=== PATIENT | male | born 1975 | race Two or more races ===

== ENCOUNTER 2016-10-22 15:05 | Inpatient (IN) | payer BC ==
[2016-10-22] MEDS ORDERED: Acetaminophen TAB* 325 MG PO PRN (15:47)
[2016-10-22] MEDS ORDERED: Ondansetron INJ* 2 MG/ML VIAL IV PRN (15:47)
[2016-10-22] MEDS ORDERED: Piperac/Tazob 3.375 gm in NS* 3.375 GM/100 ML BAG IVPB SCH (16:00)
[2016-10-22] MEDS ORDERED: LORazepam TAB(*) 1 MG PO SCH (16:00)
[2016-10-22] MEDS ORDERED: NS 0.9% 1000 ML* 1,000 ML IV SCH (16:00)
[2016-10-22 16:13] LABS: Hematocrit 40 % (42-52); Mean Corpuscular HGB Conc 35 g/dl (31-36); Mean Corpuscular Hemoglobin 34 pg (27-31); Mean Corpuscular Volume 98 fL (80-94); Mean Platelet Volume 9 um3 (7.4-10.4); Red Blood Count 4.14 10^6/ul (4.0-5.4); Red Cell Distribution Width 13 % (10.5-15); White Blood Count 13.5 10^3/ul (3.5-10.8)
[2016-10-22 16:17] LABS: Add Diff/Slide Review? Slide Review Added; Comments Flag Yes
[2016-10-22] MEDS: NS 0.9% 1000 ML* 2,000 ML IV ONE ×2 (16:20→18:53)
[2016-10-22 16:27] LABS: Albumin 3.8 g/dL (3.2-5.2); BUN/Creatinine Ratio 7.9 (8-20); C Reactive Protein 216.83 mg/L (< 5.00); Calcium 9.3 mg/dL (8.6-10.3); EGFR Non-African American 70.8 (>60); Globulin 3.6 g/dL (2-4); Potassium 3.5 mmol/L (3.5-5.0); Total Protein 7.4 g/dL (6.4-8.9)
[2016-10-22] MEDS ORDERED: Piperac/Tazob 3.375 gm in NS* 3.375 GM/100 ML BAG IVPB ONE (16:30)
[2016-10-22 16:45] LABS: Eosinophils % 1 % (0-6); Immature Granulocytes 18 % (0-9); Neutrophil % 69 % (38-83); RBC Morphology Normal (Normal); Reactive Lymph % 2 % (0-6)
[2016-10-22 18:02] LABS: Urine Bacteria Absent (Absent); Urine Bilirubin Negative (Negative); Urine Glucose Negative (Negative); Urine Nitrite Negative (Negative)
--- NOTE | 2016-10-22 18:30 | HP ---
ATTENDING PHYSICIAN ADDENDUM INCLUDED ON THIS REPORT HISTORY AND PHYSICAL: DATE OF ADMISSION: 10/22/16 PRIMARY CARE PROVIDER: None. ATTENDING PHYSICIAN WHILE IN THE HOSPITAL: Rosalba Carlson MD * (report dictated by Enrike Alvarez NP). CONSULTING GASTROENTEROLOGISTS: Dr. Lee and Dr. Ornelas. CONSULTING SURGEON: Dr. Iverson. CHIEF COMPLAINT: 1. Urinary frequency. 2. Dysuria. HISTORY OF PRESENT ILLNESS: Mr. Hein is a 41-year-old male patient who started noticing last Thursday on the that he had been having some urinary hesitancy and frequency and urinating small frequent amounts. This occurred throughout the last weekend. It got worse on Thursday and Thursday, was not getting any better. He tried drinking fluids with no avail. He went and saw Dr. Thao on the . The patient was diagnosed with prostatitis and UTI. He underwent cystoscopy apparently at Dr. Thao's office as well according to the patient. It was noted that his bladder was very inflamed, so a CT scan was ordered in the outpatient setting. The CT scan today showed what appeared to be diverticulitis in addition to this with a possible fistula and small tiny abscess collections. He was referred to the hospital for IV antibiotics. The patient states that he did have a fever at this doctor's appointment. In addition to this, he says he has not been feeling chills. He says he has noted that he has had some lower abdominal discomfort, particularly on the right side surprisingly and he also says he had some diarrhea and loose stools throughout the weekend, but he attributed this to the fact that he was not eating very well. In addition to this, it was also noted that one episode of vomiting on Thursday when he was drinking a lot of cranberry juice as he was hopeful that this would help with his urinary symptoms. He denied any chest pain or shortness of breath. He has had a cough, but there has been no shortness of breath or any chest pain. He says he is pretty active. He says he otherwise to his knowledge is healthy. He was referred here by Dr. Thao and we were asked to evaluate the patient for admission. PAST MEDICAL HISTORY: Denied. PAST SURGICAL HISTORY: Denied. MEDICATIONS: His only medication includes Bactrim 1 tablet p.o. b.i.d. which is recently prescribed for his presumed prostatitis and UTI. ALLERGIES TO MEDICATIONS: Include no known drug allergies. FAMILY HISTORY: Mother had a history of hypertension. Father had a history of colon cancer. SOCIAL HISTORY: He does not smoke, but he does drink about 2 bottles of wine a day. He has cut back over the last 3-1/2 weeks. He has not been drinking wine now over the last several days. He denies any drug use. His surrogate decision maker is his . REVIEW OF SYSTEMS: There is a documented fever. He denied having any significant weight change. No double vision. No ear discharge. There is no rhinorrhea. No sore throat. No thyroid enlargement. Denied having any chest pain. No orthopnea. There is no nocturnal dyspnea. There is low abdominal pain. There was one episode with nausea and vomiting. There was dysuria and frequency. No seizure. No loss of consciousness. No pruritus and no skin ulcerations. Review of 14 systems completed, all others negative. PHYSICAL EXAMINATION GENERAL: At this time, Mr. Hein is a 41-year-old male patient. He does not appear to be in any acute distress. He is sitting in the surgical bed. He is awake and alert. Appears well nourished, well developed. VITAL SIGNS: Blood pressure 168/90 with a pulse of 113, respirations 16, O2 sat 99%, and temperature 99.7. HEENT: Head: Atraumatic and normocephalic. Eyes: EOMs intact. Sclerae anicteric and not pale. Throat: Oral mucosa appears to be dry. No oropharyngeal erythema. NECK: Supple. LUNGS: Clear to auscultation bilaterally. No wheezes, rales, or rhonchi. HEART: Sounds S1, S2. He is tachycardic. ABDOMEN: It was soft. Bowel sounds were present. He had some tenderness in the left, right lower quadrants and the suprapubic area as well. No rebound tenderness and he was not distended at this point. EXTREMITIES: Pulses were 2+ throughout. Able to move all 4 extremities with 5/ 5 strength. NEUROLOGIC: The patient is awake, alert, and he is oriented x3. He had no gross focal deficits. SKIN: Grossly intact. LABORATORY DATA AND DIAGNOSTIC STUDIES: Pending as he is directly admitted, but I do have chemistries from yesterday, revealed a sodium of 134, potassium 3.7, chloride 98, bicarb 26, BUN 9, creatinine of 0.99, his calcium was 9.3, glucose of 136. We do have a CAT scan from today at about 1:30, which shows marked wall thickening of the sigmoid colon. This may represent underlying diverticulitis with possible colovesical fistula, suggestion of tiny nondrainable abscesses between the colon and the urinary bladder. There is likely chronic inflammation of the urinary bladder as well. Old medical records were reviewed. ASSESSMENT AND PLAN: Mr. Hein is a 41-year-old male patient coming into the hospital today to be directly admitted for abnormal CT findings, fever and tachycardia; on CT findings, it was found that he probably had diverticulitis with a colovesicular fistula. We were asked to evaluate for admission. He will be admitted under inpatient status for: 1. Diverticulitis with complications of fistula and small abscesses: I did touch base with GI who says that the most likely course of action would be to try to get the patient on some antibiotics to decrease the inflammation and probably do a colonoscopy in about 6 weeks. For the time being though, he is tachycardic. I do not have a white count. He does not have a fever fortunately , but I think he deserves at least 2 L of fluid. CBC, CMP, CRP, INR, and in addition to this also blood cultures and placing him on Zosyn and I did touch base with Dr. Iverson who will evaluate the patient. He is n.p.o. pending Dr. Iverson's surgical evaluation. 2. Tachycardia: Again, probably secondary to dehydration and his acute illness. We will hydrate him and monitor. I will get a baseline EKG for the tachycardia. 3. DVT prophylaxis: He will be placed on SCDs. 4. Fluids, electrolytes, and nutrition: He is n.p.o. He will have normal saline, 2 L bolus of normal saline at 100 an hour. 5. Code status: Full code. TIME SPENT: Time spent on the admission was 60 minutes; greater than half the time was spent [id number] with the patient obtaining my history and physical, other half of the time spent going over the plan of care with the patient and implementing plan of care. I did discuss the plan of care with my attending, Dr. Carlson; she is in agreement. ENRIKE ALVAREZ NP ADDENDUM: DATE OF ADMISSION: 10/22/16 Mr. Hein is a 41-year-old male who has had urinary symptoms for several days, in fact was seen by Dr. Thao as outpatient, and prescribed Bactrim for cystitis. Dr. Thao was concerned that his bladder symptoms may be related to diverticulitis. A subsequent CT of the abdomen showed diverticulitis with phlegmon and possibility of colovesicular fistula. The patient is going to be admitted to the hospital with a diagnosis of diverticulitis. He is going to be treated with broad-spectrum antibiotics. Gastroenterology as well as Surgery is going to be consulted. For further details of the patient's presentation and plan, please see history and physical dictated by Enrike Alvarez NP, on with which I agree. ROSALBA CARLSON MD CC: Dr. Lee; Dr. Ornelas; Dr. Iverson* [id number]/[facility] #: [id number]/[facility] #: [id number] MTDDaphne
--- NOTE | 2016-10-22 19:19 | CONS ---
SURGICAL CONSULTATION REPORT: DATE OF CONSULT: 10/22/16 HISTORY OF PRESENT ILLNESS: I was asked by the hospitalist service to evaluate Mr. Hein, a 41-year-old gentleman, who was in otherwise previously good health up until Thursday of last week when he started experiencing diarrhea. He had a copious amount of diarrhea that he attributed to Swedish food he had eaten the day before. The diarrhea resolved. The patient then complained of urinary frequency, small amounts of urine at each voiding that amounted to a couple of tablespoons that was accompanied with pain just the end of the stream. The patient made an appointment with Urology who performed ultrasound in the office, but no cystoscopy. No stones were visualized. However, inflammatory changes were identified and for this reason, the patient was sent for a CAT scan this morning. After the CAT scan, the patient followed up with his urologist and was noted to have fever of 101 in the office and was sent for a direct admission and the hospitalist service contacted. The patient's CT scan from this morning was reviewed along with the report and did show marked inflammatory changes at the sigmoid colon and at the urinary bladder. No phlegmon or significant abscess was identified. There was no free air and no free fluid. There is no evidence of bowel obstruction. There was no evidence of nephrolithiasis. Upon direct admission, the patient's labs were drawn and he was started on Zosyn. The patient never really described abdominal pain throughout this entire process. Now he will describe lower abdominal pain that only recently started. This is nonradiating. It is minimal and he does not require narcotics for this purpose. The patient's story is additionally complicated with the fact that he is trying to withdraw from alcohol. He drinks approximately 2 bottles of wine a day and he dropped this down to 1 a day and then to 0 starting on Thursday of this week. He has done this in the past and this was accompanied with chills and night sweats, which he had again this week. He denied any fevers at home, only the fever in the urology office earlier today. His temperature here is 99.7. The patient had similar complaints of urinary symptoms approximately 3 months ago, went to an urgent care center and was possibly diagnosed with some urinary tract infection. He improved without event. We will try to obtain those records. PAST MEDICAL HISTORY: Alcohol use. PAST SURGICAL HISTORY: None. HOME MEDICATIONS: None. ALLERGIES: He has no known drug allergies. FAMILY HISTORY: Mostly noncontributory. Mother is alive. Father of colon cancer. The patient has never had a colonoscopy. SOCIAL HISTORY: Drinking as described above. He is a nonsmoker. 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 . He lives with his . REVIEW OF SYSTEMS: No shortness of breath, no chest pain. Fevers as described. No significant weight loss or weight gain. No abdominal complaints. Diarrhea as described. No nausea, no vomiting. Dysuria as described. Hematuria on one occasion. He denies any hematochezia. Bowel movements are normal at this time, again with the exception of the diarrhea occurring approximately a week ago. No bleeding or clotting disorders. No neurologic issues. No endocrine or metabolic disorders. PHYSICAL EXAM: Temperature 99.7, blood pressure 168/90, heart rate 113, O2 sat 99% with respiration rate of 16. He is alert and oriented x3. He is in no apparent distress. Head, ears, eyes, and throat: Normocephalic, atraumatic. Sclerae anicteric. Mucous membranes are moist. Abdomen is soft, nondistended, nontender. No hernias or masses are noted. No CVA tenderness. Rectal exam reveals no masses. There is stool in the vault and it was sent for guaiac studies. Extremities show no pitting edema, no cyanosis. DIAGNOSTIC STUDIES/LAB DATA: Labs show white count of 13.5, H and H 14/40. MCV of 98. Sodium is low at 130 and elevated CRP of 217, albumin is 3.8, creatinine is 1.14 which is up from yesterday's 0.99. Stool guaiac result is negative. Review of a urine culture from June, which may have corresponded with this time showed no growth. CT scan with IV and p.o. contrast, inflammation of the sigmoid colon and bladder as described above. This was reviewed closely. IMPRESSION: Pelvic inflammatory process that is likely secondary to sigmoid diverticulosis, diverticulitis; unclear if the patient has had fistula. No history of pneumaturia and with no abdominal pain at this point makes this quite difficult. The patient is suffering with dehydration and the systemic inflammatory response syndrome picture and I believe would benefit from IV hydration as well as antibiotics. I agree with Rama. We will do serial abdominal exams. Should have a GI evaluation. The patient would just benefit from cooling down infection and then working it up for the etiology, which I believe will be a strong likelihood that it will be a sigmoid colon in origin. Colonoscopy and cystoscopy in the near future would be appropriate workup. We will continue to follow with Mr. Hein. He has got no signs of acute abdomen at this point. I would not recommend a visit to the operating room at this juncture. CC: Willie Thao MD; [facility] * [id number]/[facility]PS #: [id number] MTDD
--- NOTE | 2016-10-22 19:44 | HP ---
HISTORY AND PHYSICAL:* ADDENDUM: DATE OF ADMISSION: 10/22/16 Mr. Hein is a 41-year-old male who has had urinary symptoms for several days, in fact was seen by Dr. Thao as outpatient, and prescribed Bactrim for cystitis. Dr. Thao was concerned that his bladder symptoms may be related to diverticulitis. A subsequent CT of the abdomen showed diverticulitis with phlegmon and possibility of colovesicular fistula. The patient is going to be admitted to the hospital with a diagnosis of diverticulitis. He is going to be treated with broad-spectrum antibiotics. Gastroenterology as well as Surgery is going to be consulted. For further details of the patient's presentation and plan, please see history and physical dictated by Enrike Alvarez NP, on with which I agree. [id number]/CPS #: [id number] MTDD
[2016-10-22] MEDS: Piperac/Tazob 3.375 gm in NS* 3.375 GM/100 ML BAG IVPB SCH (20:16)
--- NOTE | 2016-10-22 22:45 | CONS ---
CONSULTATION NOTE: DATE OF CONSULT: 10/22/16 HISTORY OF PRESENT ILLNESS: Mr. Hein is a 41-year-old white male whom I saw in my office 2 days ago because of 2 weeks' history of on and off severe urgency and frequency, voiding about every 30 minutes to an hour associated with mild burning on urination, but no gross hematuria. The frequency became especially severe in the last 4 days. He had nocturia 10 times the previous night. He has been voiding about every 30 minutes to an hour during the day. The patient had developed some GI symptoms last week consisting of loose bowel movements; however, there was no associated blood in the stools. He denies any fever or chills and he did not have any flank pain. Upon his evaluation in my office on 10/20/16, he was afebrile. His urinalysis showed +3 blood, was negative for esterase and nitrite. He then had a renal ultrasound, which was normal. Bladder ultrasound showed marked degree of edema and thickening of the bladder wall, but no renal or ureteral calculi. A CT urogram was then obtained and this was done this morning. The study showed normal kidneys and ureters and no hydronephrosis or calculi. There were changes of acute diverticulitis with thickening of the sigmoid colon and a rather large phlegmon that was adjacent to the left anterior bladder wall. There were suggestive of microabscesses within the phlegmon, but no real abscess cavity. There was severe diffuse thickening and edema of the bladder wall. No air was seen inside the bladder to suggest a colovesical fistula. In my office, his temperature was 101.5. IMPRESSION: Acute diverticulitis with a large phlegmon adjacent to the bladder , causing marked thickening of the bladder wall and explaining the severe irritative bladder symptoms. There is a concern about an impending colovesical fistula. I obtained a phone consultation with Dr. Dow and with Dr. Carlson from the hospitalist service. The patient is being admitted on the hospitalist service for IV antibiotics. General Surgery and GI consultations will be obtained. There is no other workup needed at this time; however, the patient will need cystoscopy at a later date to complete the workup of the microhematuria and of the bladder wall thickening. [id number]/[facility] #: [id number] [facility]
[2016-10-23] MEDS: Piperac/Tazob 3.375 gm in NS* 3.375 GM/100 ML BAG IVPB SCH ×3 (04:08→20:59)
[2016-10-23 07:03] LABS: Hematocrit 37 % (42-52); Hemoglobin 12.4 g/dl (14.0-18.0); Mean Corpuscular HGB Conc 34 g/dl (31-36); Mean Corpuscular Hemoglobin 34 pg (27-31); Mean Corpuscular Volume 99 fL (80-94); Mean Platelet Volume 9 um3 (7.4-10.4); Red Blood Count 3.69 10^6/ul (4.0-5.4); Red Cell Distribution Width 13 % (10.5-15); White Blood Count 12.1 10^3/ul (3.5-10.8)
[2016-10-23 07:31] LABS: Calcium 8.5 mg/dL (8.6-10.3); EGFR African American 105.9 (>60); EGFR Non-African American 82.3 (>60); Potassium 3.5 mmol/L (3.5-5.0)
[2016-10-23] MEDS: Multivitamins/Minerals TAB PO SCH (08:23)
[2016-10-23] MEDS: Folic Acid TAB* 1 MG PO SCH (08:23)
[2016-10-23] MEDS: Thiamine TAB* 100 MG TAB PO SCH (08:23)
--- NOTE | 2016-10-23 13:10 | PN ---
Subjective Date of Service: 10/23/16 Interval History: . Interviewed and examined patient at bedside; Discussed case with Dr. Carlson ; Reviewed previous notes and radiology results; Family History: Unchanged from Admission Social History: Unchanged from Admission Past Medical History: Unchanged from Admission Objective Active Medications: . Acetaminophen (Tylenol Tab*) 650 mg PO Q4H PRN PRN Reason: FEVER/PAIN Last Admin: 10/22/16 19:35 Dose: 650 mg Folic Acid (Folvite Tab*) 1 mg PO DAILY [facility] Last Admin: 10/23/16 08:23 Dose: 1 mg Sodium Chloride (Ns 0.9% 1000 Ml*) 1,000 mls @ 125 mls/hr IV PER RATE [facility] Last Admin: 10/22/16 20:16 Dose: 125 mls/hr Piperacillin Sod/Tazobactam Sod (Zosyn 3.375 Gm In Ns Premix*) 3.375 gm in 100 mls @ 25 mls/hr IVPB Q8H [facility] Last Admin: 10/23/16 12:11 Dose: 25 mls/hr Lorazepam (Ativan Tab(*)) 0 mg PO .PER WAM SCORE [facility] PRN Reason: Protocol Multivitamins/Minerals (Theragran/Minerals Tab*) 1 tab PO DAILY [facility] Last Admin: 10/23/16 08:23 Dose: 1 tab Ondansetron HCl (Zofran Inj*) 4 mg IV Q6H PRN PRN Reason: NAUSEA Thiamine HCl (Vitamin B-1 Tab*) 100 mg PO DAILY [facility] Last Admin: 10/23/16 08:23 Dose: 100 mg . Vital Signs 10/22/16 10/22/16 10/22/16 15:28 16:00 17:13 Temperature 99.7 F 100.9 F Pulse Rate 113 111 Respiratory 16 16 Rate Blood Pressure 168/90 156/91 (mmHg) O2 Sat by Pulse 99 96 96 Oximetry 10/22/16 10/22/16 10/22/16 17:28 19:26 19:32 Temperature 101.7 F Pulse Rate 105 Respiratory 20 20 20 Rate Blood Pressure 152/94 (mmHg) O2 Sat by Pulse 99 Oximetry Oxygen Devices in Use Now: None Appearance: NAD Eyes: No Scleral Icterus Ears/Nose/Mouth/Throat: NL Teeth, Lips, Gums Neck: NL Appearance and Movements; NL JVP Respiratory: Symmetrical Chest Expansion and Respiratory Effort, Clear to Auscultation Cardiovascular: NL Sounds; No Murmurs; No JVD Abdominal: NL Sounds; No Tenderness; No Distention Lymphatic: No Cervical Adenopathy Extremities: No Edema Skin: No Rash or Ulcers Neurological: Alert and Oriented x 3, NL Gait Lines/Tubes/Other Access: Clean, Dry and Intact Peripheral IV Nutrition: Taking PO's Result Diagrams: 10/23/16 06:26 10/23/16 06:26 Microbiology and Other Data: Microbiology 10/22/16 16:15 Stool Occult Blood (HARRIET) - Final Stool Assess/Plan/Problems-Billing . Assessment: 41 yo man with compllicated diverticulitis -- possibly rectovesicular fistula. Stable at this time. Current Medications: - Acetaminophen (Tylenol Tab*) 650 mg PO Q4H PRN FEVER/PAIN - Folic Acid (Folvite Tab) 1 mg PO DAILY - NS @ 125 mls/hr IV PER RATE JASKARAN - Zosyn 3.375 gm IV Q8H - WAM / Lorazepam Protocol - Multivitamins 1 tab PO DAILY - Ondansetron HCl (Zofran Inj) 4 mg IV Q6H PRN NAUSEA - Thiamine HCl (Vitamin B-1 Tab) 100 mg PO DAILY . - Patient Problems (1) Diverticulosis Current Visit: Yes Status: Acute Code(s): K57.90 - DVRTCLOS OF INTEST, PART UNSP, W/O PERF OR ABSCESS W/O BLEED Comment: - IV ABX - IVF - Surgical and Urologic Consultation appreciated
--- NOTE | 2016-10-23 16:09 | SURGPN ---
Subjective - Introduction -: Reports felling well, no changes overnight. No N/V, fever or chills. - Medications -: Active Medications Generic Name Dose Route Start Last Admin Trade Name Gerard PRN Reason Stop Dose Admin Acetaminophen 650 mg 10/22/16 15:47 10/22/16 19:35 Tylenol Tab* PO 650 mg Q4H PRN Administration FEVER/PAIN Folic Acid 1 mg 10/23/16 09:00 10/23/16 08:23 Folvite Tab* PO 1 mg DAILY JASKARAN Administration Sodium Chloride 1,000 mls @ 125 mls/hr 10/22/16 16:00 10/22/16 20:16 Ns 0.9% 1000 Ml* IV 125 mls/hr PER RATE JASKARAN Administration Piperacillin Sod/Tazobactam Sod 3.375 gm in 100 mls @ 25 mls/hr 10/22/16 20: 30 10/23/16 12:11 Zosyn 3.375 Gm In Ns Premix* IVPB 25 mls/hr Q8H JASKARAN Administration Lorazepam 0 mg 10/22/16 16:00 Ativan Tab(*) PO .PER WAM SCORE [facility] Protocol Multivitamins/Minerals 1 tab 10/23/16 09:00 10/23/16 08:23 Theragran/Minerals Tab* PO 1 tab DAILY JASKARAN Administration Ondansetron HCl 4 mg 10/22/16 15:47 Zofran Inj* IV Q6H PRN NAUSEA Thiamine HCl 100 mg 10/23/16 09:00 10/23/16 08:23 Vitamin B-1 Tab* PO 100 mg DAILY JASKARAN Administration Objective - Objective -: Awake and alert, comfortable on bed, in NAD. - Intake and Output -: Intake & Output 10/21/16 10/22/16 10/23/16 10/24/16 06:59 06:59 06:59 06:59 Intake Total 5090 1160 Output Total 850 100 Balance 4240 1060 Weight 215 lb Intake: IV Fluids 2200 30 NS 30 NS BOLUS 1980 ZOSYN 220 IVPB 990 110 NS 990 ZOSYN 110 Oral 1900 1020 Output: Urine 850 100 Other: Estimated Void Medium Medium # Bowel Movements 2 Estimated Stool Amount Small # Voids 1 1 Surgical Physical Exam - Comments -: Vitals reviewed, afibrile. Abdomen: soft, non-tender and non-distended. No guarding or rigidity. Assessment and Plan - Assessment -: A 41 y/o male with sigmoid diverticulitis, clinically stable. - Plan Additional Comments: Will continue IV antibiotics coverage, clear liquid diet for now. No immediate surgical concerns at this point.
--- NOTE | 2016-10-23 20:38 | CONS ---
GASTROENTEROLOGY CONSULT: DATE: CONSULTING PROVIDERS: Enrike Alvarez NP; Robinson Iverson; Willie Thao; Cheryl Wynne REASON FOR CONSULT: Dysuria and frequency with fever to 101.[address] scan showing thickening of the sigmoid colon and bladder with phlegmon interposed between the two. 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 The next day, he began having some urinary urgency. He tried pushing fluid and drinking some cranberry juice. The symptom would not go away. He saw Dr Thao October 20 and bladder ultrasound showed thickening of the bladder. He was placed on Bactrim. An outpatient CT was arranged given the atypicality of this presentation. The CT scan on October 22 showed thickening of the sigmoid colon wall and an area of fluid and phlegmon appearing to go down to the wall of the bladder. The bladder wall is diffusely thickened. He had a fever of 101.[address] Thao's office at that time. His interpretation is that a perforation of sigmoid diverticulum has broken through the peritoneum and enveloped the bladder with inflammatory tissue. The urinalysis in Dr Thao's office actually did not show an infection on the first day and he has not had pneumaturia. He has been admitted, placed on Zosyn, and today he is feeling better and indeed hungry. He has had some stool. There has been no gross bleeding. A couple of months ago, he started to have similar urinary urgency. It on its own in a day or two. He did go to [facility] near [facility], and was told he had probably passed a stone. PAST MEDICAL HISTORY: Essentially negative. He has not had any surgery. FAMILY HISTORY: His father had colon polyps or tumor and of sepsis after an attempted colectomy reportedly from iatrogenic injury to the bladder. Paternal cousins x2 (father's sister's children) have had colon cancer though they are in their 60s. SOCIAL HISTORY: He is and his is a nurse in the [employer]. 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 Up to this point, he has not had a primary physician. REVIEW OF SYSTEMS: No history of syncope, migraines, seizure, cardiac issues, [place], valvular disease, asthma, hemoptysis, hepatitis, or any liver abnormalities. The hospitalist history denotes considerable wine intake, though his LFTs have been normal. PHYSICAL EXAM: He is a generally healthy-appearing, middle-aged man, in no distress. He has no icterus. He has no adenopathy. His lungs are clear and heart sounds are normal. The abdomen is symmetric with normal bowel sounds, somewhat firm, some voluntary guarding with surprisingly a little tenderness seen with deep palpation in the lower quadrants. Rectal: Deferred. His was in the room assisting with the history and providing considerable detail. Extremities show no edema. Neurologic is nonfocal. DIAGNOSTIC STUDIES/LAB DATA: CBC yesterday showed hemoglobin 14.0, hematocrit 40, MCV 98, white count 13.5, and LFTs normal with CRP 217 CT review - coronal images 50 to 53 of 99 show the inflammatory connection between the bowel and the bladder. IMPRESSION: A man with most likely diverticulitis invading the area around the bladder. There is no evidence for Crohn's disease based on lack of chronic symptoms and his terminal ileum appears normal in the CT. The history of colon cancer in the family is worrisome, but at age 41, this abrupt presentation is much more likely to be diverticulitis in origin. The plan will be to give antibiotics, probably a fluoroquinolone for a couple of weeks and then reassess as to the advisability of getting another CT scan or whether cystoscopy or colonoscopy would be the next invasive intervention. He will clearly need both. It was discussed that the likelihood of needing a sigmoid surgical resection at some point over the years seems almost inevitable. [id number]/[facility] #: [id number] [facility]
[2016-10-24] MEDS: Piperac/Tazob 3.375 gm in NS* 3.375 GM/100 ML BAG IVPB SCH ×2 (04:52→13:30)
[2016-10-24 08:16] LABS: Hematocrit 38 % (42-52); Mean Corpuscular HGB Conc 34 g/dl (31-36); Mean Corpuscular Hemoglobin 34 pg (27-31); Mean Corpuscular Volume 99 fL (80-94); Mean Platelet Volume 9 um3 (7.4-10.4); Red Blood Count 3.87 10^6/ul (4.0-5.4); Red Cell Distribution Width 13 % (10.5-15); White Blood Count 9.3 10^3/ul (3.5-10.8)
[2016-10-24] MEDS: Folic Acid TAB* 1 MG PO SCH (08:37)
[2016-10-24] MEDS: Multivitamins/Minerals TAB PO SCH (08:37)
[2016-10-24] MEDS: Thiamine TAB* 100 MG TAB PO SCH (08:37)
[2016-10-24 08:40] LABS: BUN/Creatinine Ratio 6.2 (8-20); C Reactive Protein 150.03 mg/L (< 5.00); Calcium 8.8 mg/dL (8.6-10.3); EGFR African American 135.1 (>60); Potassium 3.3 mmol/L (3.5-5.0)
[2016-10-24] MEDS ORDERED: Potassium Chlor TAB* 10 MEQ TAB.ER PO ONE (10:39)
[2016-10-24 13:15] VITALS: BP 142/89
--- NOTE | 2016-10-25 03:04 | DS ---
CC: Dr. Angelo Holland for routing to assigned physician; Dr. Gt Ornelas; Dr. Willie Thao; Dr. Iverson DISCHARGE SUMMARY: DATE OF ADMISSION: 10/22/16 DATE OF DISCHARGE: 10/24/16 STATUS DURING THE HOSPITALIZATION: Inpatient. PRIMARY CARE PROVIDER: New assignment to [facility], specific doctor is being assigned. CONSULTING AUTO PORTER: Dr. Gt Ornelas. CONSULTING UROLOGIST: Dr. Willie Thao. CONSULTING SURGEON: Dr. Iverson. PRINCIPAL DISCHARGE DIAGNOSIS: Sigmoid diverticulitis with potential communication with bladder and associated cystitis/prostatitis - but unclear connection - currently stable. SECONDARY DIAGNOSIS: Recent urinary tract infection. DISCHARGE MEDICATIONS: 1. Ciprofloxacin 500 mg by mouth twice daily for 7 days, then stop. 2. Flagyl 500 mg by mouth twice daily for 7 days, then stop. 3. Acetaminophen 650 mg q.4 hours p.r.n. pain versus fever. DISCHARGE FOLLOWUP: 1. Followup appointment with Dr. Gt Ornelas in 2 weeks. 2. Followup appointment with Dr. Thao in approximately 2 weeks. 3. Followup appointment with PCP as scheduled by hospitalist coordinator HISTORY OF PRESENT ILLNESS AND HOSPITAL COURSE: Please see the H and P by Enrike Alvarez NP, under the supervision of Dr. Rosalba Carlson. In brief, Mr. Hein is a 41-year-old male who noticed urinary hesitancy and frequency and was diagnosed with UTI. The patient also was diagnosed with prostatitis. He underwent cystoscopy and I do not have the results of that, although it happened in the outpatient setting. The patient had a CT scan ordered in the outpatient setting in response to some inflammatory symptoms and it showed diverticulitis with a possible fistula and a tiny abscess collection. The patient was referred for IV antibiotics and came to the hospital and reported some diarrhea and loose stools as well. The patient was drinking cranberry juice and was not fully working. The patient was started on Bactrim prescribed by Dr. Thao, I believe. The patient was admitted to the hospital with the diagnosis of sigmoid diverticulitis. There was marked thickening of the sigmoid colon and a noted possible colovesicular fistula with tiny nondrainable abscesses between the colon and the urinary bladder with likely chronic inflammation in the urinary bladder as well. The patient was started on IV antibiotics to include Zosyn. The patient did very well in the hospital, dropped his white blood cell count from 13.5 down to 9.3. He is repetitively afebrile. He is normotensive. He is ambulating with very little pain with generally normal electrolytes and the CRP has begun to trend downward. At this point, I think it is reasonable to transition to oral antibiotics for an additional 7 days with outpatient followup beyond that for colonoscopy and cystoscopy, the sequence of which will be decided by the specialist. General Surgery consulted during this hospitalization and agreed there was no role for surgical intervention. I discussed the case in full with the patient's who happens to be a [facility] nurse in the surgical department and she is going to help him follow up with PCP and specialists' appointments. He can come back to the hospital if there is any concerning symptoms including but not limited to increasing lower abdominal pain, diarrhea, high fevers, chills, or any other worrisome symptoms that might arise. He said he would comply with this instruction. TIME SPENT: Total time taken to discharge Mr. Hein was 45 minutes; greater than half the time was spent going over the discharge instructions [id number] with the patient and with a separate conversation with the patient's . [id number]/[facility] #: [id number] MTDD
--- NOTE | 2016-10-26 13:03 | PN ---
Hospitalist Progress Note . HOSPITALIST DISCHARGE NOTE: See dc instructions and summary by me. Patient stable for dc dc instructions reviewed with the patient at the bedside. DC patient home today.
== END 2016-10-24 13:29 | disposition home or self-care (01) | DRG 244 ==
LOC: SSU 15:07
PROVIDERS: ADMIT Internal Medicine; ATTEND Internal Medicine
DX: K57.20 Diverticulitis of large intestine with perforation and abscess without bleeding (principal); N32.1 Vesicointestinal fistula; E86.0 Dehydration; N41.3 Prostatocystitis; Z80.0 Family history of malignant neoplasm of digestive organs
CPT/HCPCS: 36415; 74177; 80048; 80053; 81003; 81015; 82272; 83605; 83630; 85025; 85027; 85610; 86140; 87040; 87086; 87493; 93005; A9270-GY; J2543; Q9967

== ENCOUNTER 2016-12-05 07:05 | Inpatient (IN) | payer BC ==
[2016-12-05 08:12] LABS: Hematocrit 40 % (42-52); Hemoglobin 13.2 g/dl (14.0-18.0); Mean Corpuscular HGB Conc 33 g/dl (31-36); Mean Corpuscular Hemoglobin 31 pg (27-31); Mean Corpuscular Volume 93 fL (80-94); Mean Platelet Volume 9 um3 (7.4-10.4); Red Blood Count 4.22 10^6/ul (4.0-5.4); Red Cell Distribution Width 13 % (10.5-15); White Blood Count 13.5 10^3/ul (3.5-10.8)
[2016-12-05 08:28] LABS: Albumin 3.8 g/dL (3.2-5.2); BUN/Creatinine Ratio 9.8 (8-20); C Reactive Protein 198.74 mg/L (< 5.00); Calcium 8.9 mg/dL (8.6-10.3); EGFR African American 116.6 (>60); EGFR Non-African American 90.7 (>60); Globulin 2.7 g/dL (2-4); Potassium 3.7 mmol/L (3.5-5.0); Total Protein 6.5 g/dL (6.4-8.9)
[2016-12-05] MEDS ORDERED: Iohexol 300* (CONTRAST) 10 ML SDV IV ONE (08:31)
[2016-12-05] MEDS ORDERED: Ondansetron INJ* 2 MG/ML VIAL IV ONE (09:18)
[2016-12-05] MEDS ORDERED: Piperac/Tazob 3.375 gm in NS* 3.375 GM/100 ML BAG IVPB ONE (11:01)
--- NOTE | 2016-12-05 11:05 | RAD ---
Indication: Lower abdominal pain. Patient status post recent colonoscopy. Contrast: Administered 121.0 ml of OMNIPAQUE 300 mg/ml CT of the abdomen and pelvis was performed after oral and IV contrast administration. Coronal and sagittal reconstructed images were obtained. Comparison is made with previous exam dated October 22, 2016. The lung bases demonstrate no pleural fluid, nodules or masses. Heart is of normal size without evidence of pericardial effusion. The liver is normal in size. No focal lesions or intrahepatic duct dilatation is noted. The pancreas demonstrates no mass or pancreatic duct dilatation. The common duct is not dilated. The gallbladder demonstrates no calcified gallstones. No pericholecystic fluid or wall thickening is identified. The spleen is normal in size. No adrenal masses are noted. The kidneys demonstrate no hydronephrosis of either kidney. No dilated loops of bowel are noted. There is marked wall thickening and submucosal edema of the sigmoid colon. There are small foci of extraluminal air noted at the junction between the descending colon and sigmoid colon consistent with a contained perforation. There is a small abscess collection within the wall of the colon measuring up to 3.1 cm. No hernias are noted. Extensive phlegmon is noted. IMPRESSION: PERSISTENT WALL THICKENING OF THE SIGMOID COLON WITH EVIDENCE OF LOCALIZED PERFORATION AT THE JUNCTION BETWEEN THE SIGMOID COLON AND DESCENDING COLON. THERE APPEARS TO BE A SMALL FLUID COLLECTION IN THE WALL OF THE COLON MEASURING 3.[address] Singer was notified of the results at 11:01 AM.
[2016-12-05] MEDS ORDERED: Ondansetron INJ* 2 MG/ML VIAL IV PRN (12:06)
[2016-12-05] MEDS ORDERED: Acetaminophen TAB* 325 MG PO PRN (12:06)
[2016-12-05] MEDS: Ketorolac INJ* 30 MG/ML 1 ML VIAL IV PUSH PRN (12:21)
[2016-12-05] MEDS: NS 0.9% 1000 ML* 1,000 ML IV SCH ×2 (14:30→21:20)
--- NOTE | 2016-12-05 14:43 | HP ---
CC: [facility]; Dr. Gt Ornelas from Gastroenterology; Dr. Rui Wetzel, Primary Medicine in [place]. HISTORY AND PHYSICAL: DATE OF ADMISSION: 12/05/16 REASON FOR ADMISSION: Recurrent sigmoid colon diverticulitis. HISTORY OF PRESENT ILLNESS: Mr. Neal Hein is a healthy 41-year-old gentleman who had been admitted to the hospital in early October of this year with what appeared to be acute sigmoid diverticulitis. His symptoms initially had started as a urinary retention, he developed some lower discomfort and a CT scan showed thickened bladder wall as well as diverticulitis without evidence of free perforation or abscess. He was hospitalized for several days and was discharged home on ciprofloxacin and Flagyl for 7 days. He had been doing well until Thursday evening. Coincidentally he had been scheduled for his colonoscopy with Dr. Gt Ornelas yesterday. He had performed the prep and underwent the colonoscopy yesterday. Per Dr. Ornelas's report he used a pediatric endoscope and he was noted to have diverticulitis with some residual edema in the distal sigmoid colon and some narrowing and erythema noted. Once he passed through this area no difficulty reaching the cecum as well. Biopsies were not performed. He seemed to do well later last night, ate some dinner, did get some bloating overnight. This morning woke up with some lower abdominal discomfort, it is fairly significant with anorexia and he presented to the emergency room after a call to the gastroenterology office. PAST MEDICAL HISTORY: None. PAST SURGICAL HISTORY: None. MEDICATIONS: Multivitamins. ALLERGIES: He has no known drug allergies. SOCIAL HISTORY: He is . He does not smoke. He drinks a very rare amount of alcohol. Denies drug abuse. His is the surrogate decision maker. 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 REVIEW OF SYSTEMS: He has had no fevers. He denies any shakes or chills. He has had no urinary complaints. He has been passing some flatus and has had a very small loose bowel movement yesterday. He has had no chest pain, shortness of breath or hemoptysis. PHYSICAL EXAMINATION GENERAL: He is a well-developed, well nourished male appears to be in no apparent distress, awake, alert and conversant. VITAL SIGNS: Temperature is 98, pulse 91, blood pressure 119/70, respirations 14. HEENT: Sclerae are anicteric. His oral mucosa is dry. Trachea was midline. LUNGS: Clear to auscultation with normal respiratory effort. HEART: Regular rate and rhythm without murmurs, rubs, or gallops. ABDOMEN: Soft and slightly distended. He has tenderness in both lower quadrants with some voluntary guarding. He has no generalized peritoneal irritation. He had some bowel sounds present throughout. PSYCHIATRIC: He is awake, alert and oriented x3. DIAGNOSTIC STUDIES/LAB DATA: Include white blood cell count of 13,500 with a hemoglobin of 13.2. He does have 91% neutrophils. Electrolytes, BUN and creatinine were within normal limits. His C-reactive protein is 198. Lactic acid 0.7. He has a total bilirubin of 3 with normal liver transaminase and alkaline phosphatase. He underwent a CT scan of the abdomen and pelvis with oral and IV contrast. I did review the study and its images. This shows a persistent wall thickening of the entire sigmoid colon with a significant amount of inflammation and contained extraluminal air at the junction between the descending and the sigmoid colon. This is contained and there may be a small fluid collection within this area up to 3 cm, possibly representing an early abscess formation. There is no free intraabdominal fluid or there is any remote extraperitoneal air. The study otherwise was unremarkable. IMPRESSION: Sigmoid colon diverticulitis with localized perforation. He had been recently admitted in the middle of October with his initial episode of diverticulitis. He underwent a colonoscopy yesterday with Dr. Ornelas, which described edema and narrowing of the bowel, but he developed pain the night before the colonoscopy. The amount of extraluminal air is probably not surprising in light of the fact that he had a colonoscopy yesterday. This seemed well contained and it is difficult to determine the significance at this point; however, he certainly does have perforation with possible developing abscess. PLAN: 1. Patient will be admitted to the surgical service. 2. We will start him on IV Zosyn and IV fluids. 3. We will keep him n.p.o. 4. Repeat laboratory values will be done in the morning. 5. We will start him on subq heparin. 6. We will watch him closely of the next several days. I discussed the findings with both him and his who was an operating room nurse here. It will be important to follow him clinically with any worsening signs of generalized abdominal pain or sepsis which will require an emergent operation most likely with a sigmoid colon resection and end colostomy. He may require follow up CT scan in the next several days to follow abscess formation, which may be will be drained percutaneously and I discussed this with them as well. [id number]/[facility] #: [id number] MTDD
[2016-12-05] MEDS: Heparin VIAL(*) 5000 UNITS/ML VIAL (FIVE THOUSAND) SUBCUT SCH ×2 (15:50→22:31)
[2016-12-05] MEDS: Piperac/Tazob 3.375 gm in NS* 3.375 GM/100 ML BAG IVPB SCH ×2 (15:50→23:00)
--- NOTE | 2016-12-05 18:55 | ED ---
Carlos Mi Adam, scribed for Jake Singer MD on 12/05/16 at 0753 . GI/ HPI - HPI Summary HPI Summary: Pt is a 41 year old male presenting with abdominal pain. It is a 5/10 in severity and it is described as a dull to sharp cramping that is diffuse across his abdomen. He had a colonoscopy done yesterday because he was dx'd with diverticulitis 40 days ago. The abdominal cramping set on as he was doing the prep for the colonoscopy. He was in the hospital for 2 days when diagnosed with the diverticulitis last month b/c he had high fever. He was on abx for an additional 7 days after being discharged. He also reports some dizziness, diaphoresis, and nausea associated with the abdominal pain. He denies any back pain or vomiting. He denies any surgical Hx. FMHx of colon cancer. - History of Current Complaint Chief Complaint: EDAbdPain Time Seen by Provider: 12/05/16 07:48 Stated Complaint: BLOATING/ABD PAIN Hx Obtained From: Patient Onset/Duration: Started Days Ago, Atraumatic, Still Present Timing: Constant Severity: Moderate Current Severity: Moderate Pain Intensity: 8 Location of Pain: Diffuse - Lower abdomen Pain Characteristics: Sharp, Dull, Cramping Associated Signs and Symptoms: Positive: Dizziness, Nausea, Diaphoresis. Negative: Vomiting Aggravating Factor(s): Nothing Alleviating Factor(s): Nothing - Additional Pertinent History Primary Care Physician: [id number] - Allergy/Home Medications Allergies/Adverse Reactions: Allergies Allergy/AdvReac Type Severity Reaction Status Date / Time No Known Allergies Allergy Verified 12/05/16 11:50 Home Medications: Home Medications Acetaminophen TAB* [Tylenol TAB*] 650 mg PO Q4H PRN 12/05/16 [History Confirmed 12/05/16] PMH/Surg Hx/FS Hx/Imm Hx Endocrine/Hematology History: Denies: Hx Diabetes Cardiovascular History: Denies: Hx Hypertension Respiratory History: Reports: Hx Seasonal Allergies - WHEN WAS KIND GI History: Reports: Hx Diverticulosis - CURRENT Musculoskeletal History: Reports: Hx Back Problems - IN 20'S Sensory History: Reports: Hx Contacts or Glasses Opthamlomology History: Reports: Hx Contacts or Glasses Infectious Disease History: No Infectious Disease History: Denies: Traveled Outside the [place] in Last 30 Days - Family History Known Family History: Positive: Other - Colon cancer - Social History Occupation: Employed Full-time Lives: With Family - Alcohol Use: Daily Alcohol Amount: 10-12 GLASSES, LAST TIME TO DRINK WAS 10/20/2016--HAS 2 GLASSES Hx Substance Use: No Substance Use Type: Reports: None Hx Tobacco Use: No Smoking Status (MU): Never Smoked Tobacco Review of Systems Positive: Skin Diaphoresis. Negative: Fever, Chills Negative: Erythema Negative: Sore Throat Negative: Chest Pain Negative: Shortness Of Breath, Cough Positive: Abdominal Pain, Nausea. Negative: Vomiting Negative: dysuria, hematuria Negative: Myalgia, Edema Negative: Rash Neurological: Other - Dizziness All Other Systems Reviewed And Are Negative: Yes Physical Exam - Summary Physical Exam Summary: Constitutional: Well-developed, Well-nourished, Alert. (-) Distressed Skin: Warm, Dry HENT: Normocephalic; Atraumatic Eyes: Conjunctiva normal Neck: Musculoskeletal ROM normal neck. (-) JVD, (-) Stridor, (-) Tracheal deviation Cardio: Rhythm regular, rate normal, Heart sounds normal; Intact distal pulses; The pedal pulses are 2+ and symmetric. Radial pulses are 2+ and symmetric. (-) Murmur Pulmonary/Chest wall: Effort normal. (-) Respiratory distress, (-) Wheezes, (-) Rales Abd: Tenderness in the RLQ and LLQ. Musculoskeletal: (-) Edema Lymph: (-) Cervical adenopathy Neuro: Alert, Oriented x3 Psych: Mood and affect Normal Triage Information Reviewed: Yes Vital Signs On Initial Exam: Initial Vitals Temp Pulse Resp BP Pulse Ox 98.1 F 90 18 123/69 99 12/05/16 07:09 12/05/16 07:09 12/05/16 07:09 12/05/16 07:09 12/05/16 07:09 Vital Signs Reviewed: Yes - [place] Coma Scale Coma Scale Total: 15 Diagnostics - Vital Signs Vital Signs Temp Pulse Resp BP Pulse Ox 12/05/16 07:36 81 97 12/05/16 07:33 126/72 12/05/16 07:32 98.0 F 83 16 123/72 98 12/05/16 07:09 98.1 F 90 18 123/69 99 - Laboratory Lab Results: Lab Results 12/05/16 12/05/16 12/05/16 Range/Units 08:00 08:00 08:00 WBC 13.5 H (3.5-10.8) 10^3/ul RBC 4.22 (4.0-5.4) 10^6/ul Hgb 13.2 L (14.0-18.0) g/dl Hct 40 L (42-52) % MCV 93 (80-94) fL MCH 31 (27-31) pg MCHC 33 (31-36) g/dl RDW 13 (10.5-15) % Plt Count 166 (150-450) 10^3/ul MPV 9 (7.4-10.4) um3 Neut % (Auto) 91.5 H (38-83) % Lymph % (Auto) 2.6 L (25-47) % [place] % (Auto) 5.6 (1-9) % Eos % (Auto) 0.1 (0-6) % Baso % (Auto) 0.2 (0-2) % Absolute Neuts (auto) 12.3 H (1.5-7.7) 10^3/ul Absolute Lymphs (auto) 0.4 L (1.0-4.8) 10^3/ul Absolute Monos (auto) 0.8 (0-0.8) 10^3/ul Absolute Eos (auto) 0 (0-0.6) 10^3/ul Absolute Basos (auto) 0 (0-0.2) 10^3/ul Absolute Nucleated RBC 0 10^3/ul Nucleated RBC % 0 Sodium 134 (133-145) mmol/L Potassium 3.7 (3.5-5.0) mmol/L Chloride 102 (101-111) mmol/L Carbon Dioxide 23 (22-32) mmol/L Anion Gap 9 (2-11) mmol/L BUN 9 (6-24) mg/dL Creatinine 0.92 (0.67-1.17) mg/dL Est GFR ( Amer) 116.6 (>60) Est GFR (Non-Af Amer) 90.7 (>60) BUN/Creatinine Ratio 9.8 (8-20) Glucose 148 H (70-100) mg/dL Lactic Acid 0.7 (0.5-2.0) mmol/L Calcium 8.9 (8.6-10.3) mg/dL Total Bilirubin 3.00 H (0.2-1.0) mg/dL AST 10 L (13-39) U/L ALT 14 (7-52) U/L Alkaline Phosphatase 37 (34-104) U/L C-Reactive Protein 198.74 H (< 5.00) mg/L Total Protein 6.5 (6.4-8.9) g/dL Albumin 3.8 (3.2-5.2) g/dL Globulin 2.7 (2-4) g/dL Albumin/Globulin Ratio 1.4 (1-3) Lipase 16 (11.0-82.0) U/L Result Diagrams: 12/05/16 08:00 12/05/16 08:00 Lab Statement: Any lab studies that have been ordered have been reviewed, and results considered in the medical decision making process. - CT A/P CT Interpretation Completed By: Radiologist - IMPRESSION: PERSISTENT WALL THICKENING OF THE SIGMOID COLON WITH EVIDENCE OF LOCALIZED PERFORATION AT THE JUNCTION BETWEEN THE SIGMOID COLON AND DESCENDING COLON. THERE APPEARS TO BE A SMALL FLUID COLLECTION IN THE WALL OF THE COLON MEASURING 3.0 CM. GIGU Course/Dx - Diagnoses Provider Diagnoses: Perforated diverticulum - Physician Notifications Discussed Care Of Patient With: Dr. Reeves (Surgery) at 11:05. Dr. Ornelas ( GI) at approximately 11:15. Patient will be admitted. Discharge - Discharge Plan Condition: Stable Disposition: ADMITTED TO [facility] The documentation as recorded by the Carlos rivers Adam accurately reflects the service I personally performed and the decisions made by , Jake Singer MD.
[2016-12-05] MEDS: HYDROmorphone* 1 MG/ML 1 ML SYR IV SLOW PU PRN (21:28)
--- NOTE | 2016-12-05 22:21 | CONS ---
GASTROENTEROLOGY CONSULT: DATE: 12/05/16 CONSULTING PHYSICIANS: Jake Singer, emergency room, Dr. Abdi Wetzel. REASON FOR CONSULTATION: Recrudescent diverticulitis with pericolonic free air a day after colonoscopy. HISTORY: This 41-year-old man had had a presentation with frequent urinary symptoms and then CT suggesting phlegmon from diverticulitis irritating the bladder. He had been on antibiotics and after 10 days was asymptomatic. He was eating normal food and having no fever. His white count and CRP had normalized as of 11/06/16. After waiting an additional 4 weeks to consolidate his improvement and as per previous plan was given a standard Colyte prep for colonoscopy. While taking the prep he noticed intense cramping and pain in the lower abdomen. He did manage to complete the prep successfully and it came through as expected. There was no vomiting or fever. When he came in for colonoscopy, he appeared well and was afebrile. There was some minimal deep tenderness to palpation in the left lower quadrant. It was discussed that this possibly represented some reactivation of the diverticulitis so the probability of completing a colonoscopy was probably 80%. It was felt that alternately that scarring possibly involving small bowel loops had impeded a smooth progression of the prep to explain the pain. The absence of vomiting and fever was reassuring. The colonoscopy itself was certainly abnormal with lots of edema and some erythema seen between folds of a relatively short area of sigmoid. The scope however, passed readily through this area and the exam with the pediatric scope was seemingly easier than average. Above the level of the sigmoid, no abnormality was noted. Postprocedure, he seemed fine. He said he was fine when he first went home. He was resting given the sedative. Through the night, he had increasing tenderness and then this morning it was clear that he was much more tender. Coming into the ER, he was tender in the lower abdomen but afebrile. Whit count was 13.5 and his CRP about 200. CT shows a swelling (adjacent to bladder coronal image 49 / 95) but no defined fluid collection and a little bit of free air adjacent to the sigmoid colon. No biopsy had been taken. He has not been having any urinary symptoms, frequency, dysuria, etc. 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 Family History - his father had colon cancer and a paternal cousin recently of colon cancer. REVIEW OF SYSTEMS: He has been on new medications at home. He has had no chest pain, palpitations, syncope, hematuria. He has passed flatus in substantial amounts today. PHYSICAL EXAM: He is lying in bed in no acute distress. He is afebrile. His abdomen is symmetric with normal sounds. He is tender in the left lower quadrant and less so moving over to other quadrants. Rectal: Not needed. Extremities show no edema. IMPRESSION: Diverticulitis that had apparently begun to flare prior to the colonoscopy prep and then the experience of the prep and quite possibly scoping increased pressure in the lumen and pain. Whether the inflammatory collection and free air would have occurred regardless is hard to know but certainly some increased pressure from carbon dioxide use during the scoping could have led to nitrogen from swallowed ambient air getting outside the colonic lumen. At this time he needs another course of antibiotics, possibly even a little longer even if his white count and CRP normalized and most likely an elective resection. The colonoscopy did not see any evidence of IBD or cancer or polyps. [id number]/[facility] #: [id number] [facility]'S HOSPITALDaphne
[2016-12-06] MEDS: Ketorolac INJ* 30 MG/ML 1 ML VIAL IV PUSH PRN ×3 (03:35→21:03)
[2016-12-06] MEDS: NS 0.9% 1000 ML* 1,000 ML IV SCH (03:39)
[2016-12-06] MEDS: Heparin VIAL(*) 5000 UNITS/ML VIAL (FIVE THOUSAND) SUBCUT SCH ×2 (05:29→14:30)
[2016-12-06] MEDS: Piperac/Tazob 3.375 gm in NS* 3.375 GM/100 ML BAG IVPB SCH ×3 (06:24→23:03)
[2016-12-06 10:18] LABS: Add Diff/Slide Review? Slide Review Added; Comments Flag Yes; Hematocrit 37 % (42-52); Hemoglobin 12.1 g/dl (14.0-18.0); Mean Corpuscular HGB Conc 33 g/dl (31-36); Mean Corpuscular Hemoglobin 31 pg (27-31); Mean Corpuscular Volume 95 fL (80-94); Mean Platelet Volume 9 um3 (7.4-10.4); Red Cell Distribution Width 13 % (10.5-15)
--- NOTE | 2016-12-06 10:27 | PN ---
Progress Note - Progress Note SOAP: Subjective: Feeling somewhat better. Passing flatus. No N/V. Objective: Vital Signs Temp 98.0 F 12/06/16 07:21 Pulse 70 12/06/16 07:21 Resp 16 12/06/16 08:00 BP 106/57 12/06/16 07:21 Pulse Ox 98 12/06/16 07:21 Intake & Output 12/05/16 12/06/16 12/06/16 18:59 06:59 18:59 Intake Total 1199 2535 704 Output Total 550 300 Balance 1199 1985 404 Weight 200 lb Intake: IV Fluids 1094 2195 704 NS (0.9%) 1215 704 IVPB 105 200 ABX - ZOSYN 100 Oral 140 0 Output: Urine 550 300 Other: Date of Last Bowel 12/05/16 Movement NAD Abd: ND, +BS, soft, tender in LLQ to percussion. Assessment: Recurrent diverticulitis. Non-surgical abdomen. Plan: NPO. IV abx. Check labs. Unlikely to need surgical intervention this admission.
[2016-12-06 10:31] LABS: Calcium 8.2 mg/dL (8.6-10.3); EGFR African American 105.9 (>60); EGFR Non-African American 82.3 (>60); Potassium 3.4 mmol/L (3.5-5.0)
[2016-12-06 10:39] LABS: Urine Bacteria Absent (Absent); Urine Bilirubin Negative (Negative); Urine Glucose Negative (Negative); Urine Nitrite Negative (Negative)
[2016-12-06] MEDS: D5W 1/2 NS KCl 20 Meq 1000 ML* 1,000 ML IV SCH ×2 (14:25→22:27)
[2016-12-06] MEDS: HYDROmorphone* 1 MG/ML 1 ML SYR IV SLOW PU PRN (23:03)
[2016-12-07 04:49] LABS: Hematocrit 33 % (42-52); Mean Corpuscular HGB Conc 33 g/dl (31-36); Mean Corpuscular Hemoglobin 31 pg (27-31); Mean Corpuscular Volume 94 fL (80-94); Mean Platelet Volume 9 um3 (7.4-10.4); Red Blood Count 3.52 10^6/ul (4.0-5.4); Red Cell Distribution Width 13 % (10.5-15); White Blood Count 5.3 10^3/ul (3.5-10.8)
[2016-12-07] MEDS: D5W 1/2 NS KCl 20 Meq 1000 ML* 1,000 ML IV SCH ×3 (06:25→22:14)
[2016-12-07] MEDS: Piperac/Tazob 3.375 gm in NS* 3.375 GM/100 ML BAG IVPB SCH ×3 (06:26→22:54)
[2016-12-07] MEDS: Ketorolac INJ* 30 MG/ML 1 ML VIAL IV PUSH PRN ×2 (07:21→16:36)
--- NOTE | 2016-12-07 12:58 | PN ---
Progress Note - Progress Note SOAP: Subjective: Pain is less. Loose BM. no chills. Objective: Vital Signs Temp 98.1 F 12/07/16 11:44 Pulse 53 12/07/16 11:44 Resp 16 12/07/16 11:44 BP 109/67 12/07/16 11:44 Pulse Ox 100 12/07/16 11:44 NAD abd: +BS, soft, ND, tender in LLQ to light palpation and percussion. Intake & Output 12/06/16 12/07/16 12/07/16 18:59 06:59 18:59 Intake Total 1459 2542 120 Output Total 600 350 Balance 859 2542 -230 Intake: IV Fluids 1459 2082 ABX - ZOSYN 105 112 NS (0.9%) 1354 d5 1/2 20kcl 1970 IVPB 100 ABX - ZOSYN 100 Oral 0 360 120 Output: Urine 600 350 Other: Estimated Void Medium # Bowel Movements 1 Estimated Stool Amount Medium # Voids 2 Laboratory Results - last 24 hr 12/07/16 12/07/16 04:35 04:35 WBC 5.3 RBC 3.52 L Hgb 11.0 L Hct 33 L MCV 94 MCH 31 MCHC 33 RDW 13 Plt Count 131 L MPV 9 C-Reactive Protein 227.80 H Assessment: Sigmoid diverticulitis. Improving on IV abx and bowel rest. Plan: Continue same. Discussed that there is no urgent need for surgery at this point. Likely he will be d/c'd in 1-2 days on po abx.
[2016-12-07] MEDS: HYDROmorphone* 1 MG/ML 1 ML SYR IV SLOW PU PRN (22:55)
[2016-12-08] MEDS: D5W 1/2 NS KCl 20 Meq 1000 ML* 1,000 ML IV SCH (06:08)
[2016-12-08] MEDS: Piperac/Tazob 3.375 gm in NS* 3.375 GM/100 ML BAG IVPB SCH (06:21)
--- NOTE | 2016-12-08 10:35 | SURGPN ---
Subjective - Introduction -: Reports feeling much better today. Ambulatory, feels hungry, denies pain, N/V, fever or chills. - Medications -: Active Medications Generic Name Dose Route Start Last Admin Trade Name Freq PRN Reason Stop Dose Admin Acetaminophen 650 mg 12/05/16 12:06 Tylenol Tab* PO Q6H PRN FEVER Hydromorphone HCl 1 mg 12/05/16 12:06 12/07/16 22:55 Dilaudid Iv* IV SLOW PU 1 mg Q1H PRN Administration PAIN Piperacillin Sod/Tazobactam Sod 3.375 gm in 100 mls @ 25 mls/hr 12/05/16 15: 00 12/08/16 06:21 Zosyn 3.375 Gm In Ns Premix* IVPB 25 mls/hr Q8H JASKARAN Administration Potassium Chloride/Dextrose 1,000 mls @ 125 mls/hr 12/06/16 12:00 12/08/16 06 :08 D5w 1/2 Ns Kcl 20 Meq 1000 Ml* IV 125 mls/hr PER RATE JASKARAN Administration Ketorolac Tromethamine 30 mg 12/05/16 12:06 12/07/16 16:36 Toradol Inj* IV PUSH 30 mg Q6H PRN Administration PAIN Ondansetron HCl 4 mg 12/05/16 12:06 Zofran Inj* IV Q6H PRN NAUSEA Objective - Objective -: Awake and alert, sitting in chair, in NAD. - Intake and Output -: Intake & Output 12/06/16 12/07/16 12/08/16 12/09/16 06:59 06:59 06:59 06:59 Intake Total 3632 4001 4043 Output Total 697 339 0941 500 Balance 3082 3401 2768 -500 Weight 200 lb Intake: IV Fluids 3187 3541 3053 ABX - ZOSYN 217 113 NS (0.9%) 1215 1354 d5 1/2 20kcl 1970 2940 IVPB 305 100 210 ABX - ZOSYN 100 100 210 Oral 140 360 780 Output: Urine 210 248 1387 500 Other: Estimated Void Medium Medium # Bowel Movements 1 0 Estimated Stool Amount Medium Medium # Voids 2 1 Surgical Physical Exam - Comments -: VSS, afebrile Lungs CTA bilat. Heart RRR, no murmurs Abdomen soft, NT, ND. No guarding or rebound. Assessment and Plan - Assessment -: A 41 y/o male with recurrent sigmoid diverticulitis, improving with IV antibiotics and bowel rest. - Plan Additional Comments: Continue IV antibiotics for another day. Clear liquids diet. Likely home tomorrow on PO antibiotics if he continues to improve.
[2016-12-08 11:26] VITALS: BP 112/69
--- NOTE | 2016-12-08 13:04 | PN ---
Progress Note - Progress Note SOAP: Subjective: Patient seen and examined by Dr. Sharma. Tolerating clear liquids, denies any complaints. Objective: VSS Exam unchanged from this AM Assessment: Recurrent sigmoid diverticulitis, improving with Abx. Plan: D/C to home today per Dr. Sharma, on Flagyl and Cipro for next 14 days F/U in office after PO Abx course. Advised to advance diet very slowly as tolerated. Will call our office if any worse.
--- NOTE | 2016-12-09 09:36 | DS ---
DISCHARGE SUMMARY: ADMISSION DATE: 12/05/16 DISCHARGE DATE: 12/08/16 ADMISSION DIAGNOSES: 1. Abdominal pain. 2. Recurrent sigmoid colon diverticulitis. DISCHARGE DIAGNOSES: 1. Abdominal pain. 2. Recurrent sigmoid colon diverticulitis. ADMITTING PHYSICIAN: Mitchel Reeves MD (DICTATED BY KAROL LEUNG) CONSULTATIONS: Gt Ornelas MD and Dr. Sharma. PROCEDURE: None. BRIEF MEDICAL HISTORY: Mr. Hein is a pleasant 41-year-old gentleman who is known to our practice from prior admission related to his sigmoid diverticulitis. Back in October of this year, the patient had an episode of left lower quadrant abdominal pain that initially was thought to be urinary in nature. He was followed by Dr. Thao who performed a cystoscopy and was noted to have significant inflammation for which CT scan was ordered, and was found to have significant sigmoid diverticulitis. Back then, the patient was admitted for IV antibiotic and bowel rest. He essentially was discharged to home 2 days later in a stable condition. Two days ago, the patient had bowel prep in anticipation for a colonoscopy that was performed by Dr. Ornelas. His colonoscopy showed sigmoid diverticulitis and during the evening hours of the bowel prep, the patient noticed recurrent pain in the left lower quadrant area. His pain has gotten progressively worse and after his colonoscopy, he returned to the emergency room for evaluation. He had another CT scan of the abdomen and pelvis on that admission date that revealed sigmoid diverticulitis, but no evidence of abscess or free air. Given his ongoing symptoms, we ended up admitting the patient for bowel rest and IV antibiotics and to discuss with him possible surgery. HOSPITAL COURSE: The patient was admitted under the surgical services and was kept n.p.o. He started on intravenous antibiotic empirically on Cipro and Flagyl. On the following morning, the patient did extremely well and was ambulatory out of bed. His pain eventually disappeared and he had small loose bowel movements as well. He denied any fever, chills, or any other associated symptoms. He had laboratory workup on the following day that revealed resolution of his leukocytosis that was initially 13,500 down to 5000 two days later. He continued to improve and eventually started on clear liquid diet on the second day of admission. He continued to tolerate his diet well and was ambulatory out of bed. He was seen by Dr. Sharma over the weekend and again on Thursday morning. The patient was stable to be discharge home on oral antibiotic and he will followup in 2 weeks as an outpatient. The patient will be covered using combination Cipro and Flagyl, and will be seen Dr. Sharma in 2 weeks for followup. I stressed with him dietary instructions including to maintain clear liquid diet for the next couple of days and to slowly advance his diet to low residue over the week. He was also given script for pain medication to be used as needed. The patient was strongly advised to call the office or return to the emergency room if he noticed any worsening abdominal pain or distention. DISCHARGE MEDICATIONS: 1. Percocet 5/325 mg one to two tablets as needed for pain. 2. Cipro 500 mg one tablet b.i.d. for 13 days. 3. Flagyl 500 mg one tablet t.i.d. for 14 days. 4. Vitamin B complex. 5. Tylenol as needed for pain. PROBLEM LIST: Recurrent sigmoid colon diverticulitis, the patient was discharged home on a stable condition and will continue bowel rest and p.o. antibiotics and will be seen in the office as an outpatient to discuss possible elective surgery once his episode of diverticulitis is under control. KAROL LEUNG CC: Dr. Ornelas.* [id number]/[facility] #: [id number] MTDD
== END 2016-12-08 14:55 | disposition home or self-care (01) | DRG 244 ==
LOC: ED 07:05 → OBSVTOIN 12:06 → SSU 12:06 → ED 13:34 → UNDOADMOB 14:00 → SSU 14:00
PROVIDERS: ADMIT Surgery; ATTEND Surgery
DX: K57.20 Diverticulitis of large intestine with perforation and abscess without bleeding (principal); J30.2 Other seasonal allergic rhinitis; Z80.0 Family history of malignant neoplasm of digestive organs; Z72.89 Other problems related to lifestyle
CPT/HCPCS: 36415; 74177; 80048; 80053; 81003; 81015; 83605; 83690; 85025; 85027; 86140; J1170; J1644; J1885; J2405; J2543; Q9967

== ENCOUNTER 2018-02-07 15:34 | Emergency (ER) | payer BC ==
--- NOTE | 2018-02-07 16:33 | RAD ---
Indication: Left foot injury. 3 views of left foot demonstrates no fracture. No other bone or joint abnormality is noted. IMPRESSION: No fracture of the left foot is noted.
[2018-02-07 16:42] VITALS: BP 166/114
--- NOTE | 2018-02-07 16:59 | ED ---
[place] Natalie, scribed for Carlos Seals MD on 02/07/18 at 1603 . Lower Extremity - HPI Summary HPI Summary: The patient is a 42 y/o M presenting to [facility] c/o redness, bruising, and swelling in left foot at the first, second, and third toes for the last 10 days. The pt struck his foot against a coffee table with immediate pain onset. As time went on, he noticed that the pain was increasing. The redness, bruising , and swelling worsened and then started to resolve itself, but then started to worsen again. The pain is currently rate 2/10 in severity. The pain is aggravated by ambulation and alleviated by rest. He states that he tries not to walk on it to prevent further injury. He has been taking Ibuprofen to help relieve the swelling. He does not take any blood thinners. - History of Current Complaint Chief Complaint: EDExtremityLower Stated Complaint: LT FOOT INJURY Time Seen by Provider: 02/07/18 15:45 Hx Obtained From: Patient Mechanism Of Injury: Other - struck against coffee table Onset of Pain: Immediate, Days Onset/Duration: Still Present Severity Initially: Mild Severity Currently: Moderate Pain Intensity: 2 Pain Scale Used: 0-10 Numeric Timing: Constant Location: Is Discrete @ - first, second, and third toes on left foot Character Of Pain: Aching Associated Signs And Symptoms: Positive: Swelling, Redness, Bruising Aggravating Factor(s): Ambulation Alleviating Factor(s): Rest Able to Bear Weight: Yes - Allergies/Home Medications Allergies/Adverse Reactions: Allergies Allergy/AdvReac Type Severity Reaction Status Date / Time lactose Allergy GI Upset Verified 02/07/18 15:40 PMH/Surg Hx/FS Hx/Imm Hx Endocrine/Hematology History: Denies: Hx Diabetes Cardiovascular History: Denies: Hx Hypertension Respiratory History: Reports: Hx Seasonal Allergies - WHEN WAS KIND GI History: Reports: Hx Diverticulosis - CURRENT History: Denies: Hx Renal Disease Musculoskeletal History: Reports: Hx Back Problems - IN 20'S Sensory History: Reports: Hx Contacts or Glasses Denies: Hx Hearing Aid Opthamlomology History: Reports: Hx Contacts or Glasses Infectious Disease History: No Infectious Disease History: Denies: Traveled Outside the [place] in Last 30 Days - Family History Known Family History: Positive: Other - Colon cancer - Social History Alcohol Use: Weekly Alcohol Amount: 5 days week Hx Substance Use: No Substance Use Type: Reports: None Hx Tobacco Use: No Smoking Status (MU): Never Smoked Tobacco Review of Systems Positive: Other - swelling in left foot around first, second, and third toes Positive: Bruising - in left foot, Other - redness in left foot All Other Systems Reviewed And Are Negative: Yes Physical Exam - Summary Physical Exam Summary: Appearance: Well appearing, no pain distress Skin: warm, dry, reflects adequate perfusion Head/face: normal Eyes: EOMI, ISADORA ENT: normal Neck: supple, non-tender Respiratory: CTA, breath sounds present Cardiovascular: RRR, pulses symmetrical Abdomen: non-tender, soft Bowel Sounds: present Musculoskeletal: normal, strength/ROM intact, swollen and eccymotic around left great toe, second toe, and third toe Neuro: normal, sensory motor intact, A&Ox3 Triage Information Reviewed: Yes Vital Signs On Initial Exam: Initial Vitals Temp Pulse Resp BP Pulse Ox 97.9 F 76 16 175/96 98 02/07/18 15:36 02/07/18 15:36 02/07/18 15:36 02/07/18 15:36 02/07/18 15:36 Vital Signs Reviewed: Yes Diagnostics - Vital Signs Vital Signs Temp Pulse Resp BP Pulse Ox 02/07/18 15:36 97.9 F 76 16 175/96 98 - Laboratory Lab Statement: Any lab studies that have been ordered have been reviewed, and results considered in the medical decision making process. - Radiology Left Foot XR Xray Interpretation: No Acute Changes - No fracture of the left foot is noted. ED physician has reviewed this report. Radiology Interpretation Completed By: Radiologist Re-Evaluation - Re-Evaluation First Eval Re-Evaluation Time: 16:29 Change: Improved Comment: I spoke with the pt about XR results. He will be discharged home. Lower Extremity Course/Dx - Course Course Of Treatment: Blunt force injury to the foot about one week ago. Ambulatory without alteration of gait. X-rays are negative. Linus wrap applied to assist with swelling, ecchymosis. Discharged to follow-up with primary care physician. He also will require a blood pressure recheck. - Diagnoses Provider Diagnoses: Foot contusion, Hematoma, Elevated blood pressure reading Discharge - Sign-Out/Discharge Documenting (check all that apply): Discharge/Admit/Transfer - Pt will be discharged home. - Discharge Plan Condition: Good Disposition: HOME Patient Education Materials: Contusion in Adults (ED) Referrals: Rui Wetzel MD [Primary Care Provider] - Additional Instructions: Rest, ice, ibuprofen, Linus wrap as needed for comfort. Return if worse, new symptoms or other concerns. Follow-up with your doctor - Billing Disposition and Condition Condition: GOOD Disposition: Home The documentation as recorded by the [place] Natalie accurately reflects the service I personally performed and the decisions made by , Carlos Seals MD.
== END 2018-02-07 16:41 | disposition home or self-care (01) ==
LOC: ED 15:34
DX: S90.32XA Contusion of left foot, initial encounter (principal); R60.0 Localized edema; W22.8XXA Striking against or struck by other objects, initial encounter; Y92.9 Unspecified place or not applicable; R03.0 Elevated blood-pressure reading, without diagnosis of hypertension
CPT/HCPCS: 99282

== ENCOUNTER 2020-06-18 17:28 | Inpatient (IN) ==
[2020-06-18] MEDS ORDERED: Ondansetron 4 mg VIAL 2 MG/ML 2 ml VIAL IV ONE (20:01)
[2020-06-18] MEDS ORDERED: NS 0.9% 1000 ml BAG 1,000 ML IV ONE (20:01)
[2020-06-18 20:55] LABS: ABS Lymphocytes 0.5 10^3/ul (1.0-4.8); ABS Neutrophils 8.1 10^3/ul (1.5-7.7); Hematocrit 41 % (42-52); Hemoglobin 14.4 g/dL (14.0-18.0); Mean Corpuscular HGB Conc 35 g/dL (31-36); Mean Corpuscular Hemoglobin 35 pg (27-31); Mean Corpuscular Volume 100 fL (80-94); Mean Platelet Volume 8.5 fL (7.4-10.4); Platelet Count 129 10^3/uL (150-450); Red Blood Count 4.14 10^6 /uL (4.18-5.48); Red Cell Distribution Width 13 % (10-15); White Blood Count 9.6 10^3/uL (3.5-10.8)
[2020-06-18 21:16] LABS: Albumin 4.1 g/dL (3.2-5.2); Albumin/Globulin Ratio 1.2 (1-3); BUN/Creatinine Ratio 10.8 (8-20); C Reactive Protein 30.48 mg/L (<8.01); Calcium 9.5 mg/dL (8.6-10.3); EGFR African American 161.5 (>60); EGFR Non-African American 133.4 (>60); Globulin 3.3 g/dL (2-4); Potassium 3.7 mmol/L (3.5-5.0); Total Bilirubin 1.3 mg/dL (0.2-1.0); Total Protein 7.4 g/dL (6.4-8.9)
[2020-06-18] MEDS ORDERED: Iohexol 300 (CONTRAST) 10 ML SDV IV ONE (23:08)
[2020-06-19 00:16] LABS: Urine Appearance Clear; Urine Bilirubin Negative (Negative); Urine Blood Negative (Negative); Urine Color Yellow; Urine Glucose Negative (Negative); Urine Ketones 1+ (Negative); Urine Nitrite Negative (Negative); Urine Protein Negative (Negative); Urine Specific Gravity 1.043 (1.010-1.030); Urine Urobilinogen Negative (Negative)
[2020-06-19] MEDS ORDERED: Piperacillin/Tazobac ADVAN 3.375 GM in NS 0.9% 100 ml BAG 100 ML IVPB ONE (00:20)
[2020-06-19] MEDS ORDERED: Ondansetron 4 mg VIAL 2 MG/ML 2 ml VIAL IV PRN (01:50)
[2020-06-19] MEDS: NS 0.9% 1000 ml BAG 1,000 ML IV SCH ×3 (03:47→23:13)
[2020-06-19] MEDS ORDERED: cefTRIAXone 1 gm/50 mL NS BAG 1 GM/50 ML BAG IVPB SCH (07:30)
[2020-06-19] MEDS: cefTRIAXone 1 gm/50 mL NS BAG 1 GM/50 ML BAG IVPB SCH (07:49)
[2020-06-19] MEDS ORDERED: metroNIDAZOLE IV 500 MG/100ML 500 MG/100 ML BAG IVPB SCH (08:00)
[2020-06-19] MEDS: metroNIDAZOLE IV 500 MG/100ML 500 MG/100 ML BAG IVPB SCH ×3 (08:43→23:45)
[2020-06-19] MEDS ORDERED: Thiamine 100 MG/ML 2 ml VIAL (200 mg) IM ONE (11:00)
[2020-06-19] MEDS ORDERED: Lorazepam PYXIS KEY PRN (14:14)
[2020-06-19] MEDS: LORazepam 2 mg VIAL 1 ml IV PUSH PRN ×2 (14:55→23:44)
[2020-06-20 06:33] LABS: ABS Eosinophils 0.1 10^3/ul (0-0.6); ABS Lymphocytes 0.9 10^3/ul (1.0-4.8); ABS Monocytes 0.6 10^3/ul (0-0.8); Eosinophil % 2.1 %; Hematocrit 39 % (42-52); Hemoglobin 13.5 g/dL (14.0-18.0); Lymphocyte % 19.4 %; Mean Corpuscular HGB Conc 34 g/dL (31-36); Mean Corpuscular Hemoglobin 35 pg (27-31); Mean Corpuscular Volume 101 fL (80-94); Mean Platelet Volume 9.4 fL (7.4-10.4); Platelet Count 117 10^3/uL (150-450); Red Blood Count 3.89 10^6 /uL (4.18-5.48); Red Cell Distribution Width 13 % (10-15); White Blood Count 4.6 10^3/uL (3.5-10.8)
[2020-06-20 06:41] LABS: BUN/Creatinine Ratio 11.3 (8-20); Calcium 8.6 mg/dL (8.6-10.3); EGFR African American 145.8 (>60); EGFR Non-African American 120.5 (>60); Potassium 3.9 mmol/L (3.5-5.0)
[2020-06-20] MEDS: cefTRIAXone 1 gm/50 mL NS BAG 1 GM/50 ML BAG IVPB SCH (07:32)
[2020-06-20] MEDS: metroNIDAZOLE IV 500 MG/100ML 500 MG/100 ML BAG IVPB SCH ×2 (08:25→15:23)
[2020-06-20] MEDS: Multivitamins/Minerals TAB PO SCH (08:26)
[2020-06-20] MEDS: NS 0.9% 1000 ml BAG 1,000 ML IV SCH (08:26)
[2020-06-20] MEDS: LORazepam 2 mg VIAL 1 ml IV PUSH PRN (20:41)
[2020-06-21] MEDS: metroNIDAZOLE IV 500 MG/100ML 500 MG/100 ML BAG IVPB SCH ×3 (00:05→15:46)
[2020-06-21 06:02] LABS: ABS Eosinophils 0.1 10^3/ul (0-0.6); ABS Lymphocytes 0.9 10^3/ul (1.0-4.8); ABS Monocytes 0.7 10^3/ul (0-0.8); Eosinophil % 2.6 %; Hematocrit 41 % (42-52); Hemoglobin 13.8 g/dL (14.0-18.0); Lymphocyte % 19.4 %; Mean Corpuscular HGB Conc 34 g/dL (31-36); Mean Corpuscular Hemoglobin 34 pg (27-31); Mean Corpuscular Volume 101 fL (80-94); Mean Platelet Volume 9.5 fL (7.4-10.4); Nucleated Red Blood Cells % 0.1; Platelet Count 124 10^3/uL (150-450); Red Blood Count 4.03 10^6 /uL (4.18-5.48); Red Cell Distribution Width 13 % (10-15); White Blood Count 4.8 10^3/uL (3.5-10.8)
[2020-06-21] MEDS: cefTRIAXone 1 gm/50 mL NS BAG 1 GM/50 ML BAG IVPB SCH (07:46)
[2020-06-21] MEDS: Multivitamins/Minerals TAB PO SCH (08:35)
[2020-06-21] MEDS: LORazepam 2 mg VIAL 1 ml IV PUSH PRN (21:31)
[2020-06-22] MEDS: metroNIDAZOLE IV 500 MG/100ML 500 MG/100 ML BAG IVPB SCH ×3 (00:37→17:30)
[2020-06-22] MEDS: LORazepam 2 mg VIAL 1 ml IV PUSH PRN (00:38)
[2020-06-22] MEDS: cefTRIAXone 1 gm/50 mL NS BAG 1 GM/50 ML BAG IVPB SCH (07:37)
[2020-06-22] MEDS: Multivitamins/Minerals TAB PO SCH (08:18)
[2020-06-22] MEDS ORDERED: cefTRIAXone 1 gm/50 mL NS BAG 1 GM/50 ML BAG IVPB ONE (09:32)
[2020-06-23 07:30] VITALS: BP 152/107
[2020-06-23] MEDS ORDERED: cefTRIAXone 2 GM ADDV.VIAL 2 GM in NS 0.9% 100 ml BAG 100 ML IV SCH (08:00)
[2020-06-23] MEDS: Multivitamins/Minerals TAB PO SCH (08:21)
== END 2020-06-23 12:02 | disposition home health service (06) | DRG 244 ==
LOC: ED 17:28 → SSU 06-19 01:50 → ED 06-19 03:15
PROVIDERS: ADMIT Student in an Organized Health Care Education/Training Program; ATTEND Internal Medicine

== ENCOUNTER 2020-09-07 07:04 | Inpatient (IN) ==
[~2020-09-07 07:04] MED LIST: Buffered Lidocaine 1% SYRIN 1 ml INTRADERM ONE; Dexamethasone IV 4 MG/ML VIAL 1 ml VIAL IV SLOW PU ONE; DiMENhydriNATE IV 50 mg/ml 1 ml VIAL IV PUSH ONE; Famotidine IV 10 MG/ML 2 ml VIAL (20 mg) IV ONE; Lactated Ringers 1000 ml BAG 1,000 ML IV SCH
[2020-09-07] MEDS ORDERED: Midazolam 5 mg/5 ml VIAL 1 mg/ml 5 ml VIAL (5 mg) ONE (07:12)
[2020-09-07] MEDS ORDERED: fentaNYL 250 mcg/5 ml 50 MCG/ML 5 ml VIAL (250 MCG) ONE (07:12)
[2020-09-07] MEDS ORDERED: Propofol 10 MG/ML 20 ML BTL ONE (07:13)
[2020-09-07] MEDS ORDERED: Rocuronium 50 mg VIAL 10 mg/ml 5 ml VIAL (50 mg) ONE ×3 (07:13→11:44)
[2020-09-07] MEDS ORDERED: Lidocaine 2% PF 5 ML VIAL ONE (07:13)
[2020-09-07] MEDS ORDERED: DiMENhydriNATE IV 50 mg/ml 1 ml VIAL ONE (07:19)
[2020-09-07] MEDS ORDERED: ceFOXitin 2 GM IVPREMIX 2 GM/50 ML BAG ONE ×2 (07:19→10:44)
[2020-09-07] MEDS ORDERED: Heparin 5000 UNITS/ML 1 mL VIAL ONE (07:19)
[2020-09-07] MEDS ORDERED: Dexamethasone IV 4 MG/ML VIAL 1 ml VIAL ONE (07:19)
[2020-09-07] MEDS ORDERED: Buffered Lidocaine 1% SYRIN 1 ml INTRADERM ONE (07:20)
[2020-09-07] MEDS ORDERED: Famotidine IV 10 MG/ML 2 ml VIAL (20 mg) ONE (07:20)
[2020-09-07] MEDS ORDERED: Acetaminophen IV 1 GM/100ML 1,000 MG/100 ML VIAL IVPB ONE (07:27)
[2020-09-07] MEDS ORDERED: Naloxone 0.4 mg VIAL 0.4 mg/ml 1 ml VIAL IV PRN (07:27)
[2020-09-07] MEDS ORDERED: Morphine 4 MG/ML VIAL (1 ml) IV PRN (07:27)
[2020-09-07] MEDS ORDERED: Prochlorperazine 5 mg/ml 2 ml VIAL (10 mg) IV PRN (07:27)
[2020-09-07 07:47] LABS: INR 1.44 (0.82-1.09)
[2020-09-07] MEDS ORDERED: Iohexol 180 (CONTRAST) 10 ML SDV IV ONE (08:03)
[2020-09-07] MEDS ORDERED: Bupivacaine 0.25% SDV 30 ML ONE (08:03)
[2020-09-07] MEDS ORDERED: Ketamine HCL 50 mg/ml 10 ml VIAL (500 MG) ONE (09:03)
[2020-09-07] MEDS ORDERED: Phenylephrine 40 mcg/mL 10mL (400mcg) SYRINGE ONE (09:19)
[2020-09-07] MEDS ORDERED: fentaNYL 100 mcg/2 ml 50 MCG/ML VIAL ONE ×3 (10:15→14:03)
[2020-09-07] MEDS ORDERED: ceFAZolin 1 GM ADVAN 1 GM ADDV.VIAL IVPB ONE (10:42)
[2020-09-07] MEDS ORDERED: Ondansetron 4 mg VIAL 2 MG/ML 2 ml VIAL ONE (13:05)
[2020-09-07] MEDS ORDERED: Ondansetron 4 mg VIAL 2 MG/ML 2 ml VIAL IV PRN (13:52)
[2020-09-07] MEDS ORDERED: Acetaminophen IV 1 GM/100ML 100 ML ONE (14:03)
[2020-09-07] MEDS ORDERED: Naloxone 0.4 mg VIAL 0.4 mg/ml 1 ml VIAL IV PUSH PRN (14:03)
[2020-09-07] MEDS: fentaNYL 100 mcg/2 ml 50 MCG/ML VIAL IV PRN ×2 (14:10→14:37)
[2020-09-07] MEDS ORDERED: Phytonadione Oral Solution 5 MG/25 ML UDC PO ONE (14:25)
[2020-09-07] MEDS ORDERED: HYDROmorphone PCA 20 MG/20 ML PCA.SYRING PCA SCH (15:00)
[2020-09-07] MEDS ORDERED: LORazepam 2 mg VIAL 1 ml IV PUSH SCH (15:00)
[2020-09-07] MEDS: Lactated Ringers 1000 ml BAG 1,000 ML IV SCH ×2 (15:33→23:27)
[2020-09-07] MEDS: ceFOXitin 2 GM IVPREMIX 2 GM/50 ML BAG IVPB SCH (18:05)
[2020-09-08] MEDS: ceFOXitin 2 GM IVPREMIX 2 GM/50 ML BAG IVPB SCH ×2 (02:47→10:55)
[2020-09-08 05:03] LABS: ABS Lymphocytes 0.5 10^3/ul (1.0-4.8); ABS Monocytes 1.2 10^3/ul (0-0.8); ABS Neutrophils 10.6 10^3/ul (1.5-7.7); Hematocrit 41 % (42-52); Hemoglobin 13.1 g/dL (14.0-18.0); Lymphocyte % 4.4 %; Mean Corpuscular HGB Conc 32 g/dL (31-36); Mean Corpuscular Hemoglobin 30 pg (27-31); Mean Corpuscular Volume 94 fL (80-94); Mean Platelet Volume 9.1 fL (7.4-10.4); Platelet Count 251 10^3/uL (150-450); Red Blood Count 4.33 10^6 /uL (4.18-5.48); Red Cell Distribution Width 15 % (10-15); White Blood Count 12.3 10^3/uL (3.5-10.8)
[2020-09-08 05:06] LABS: INR 1.46 (0.82-1.09)
[2020-09-08 05:16] LABS: BUN/Creatinine Ratio 11.4 (8-20); Calcium 8.3 mg/dL (8.6-10.3); EGFR African American 128.3 (>60); EGFR Non-African American 106.1 (>60); Potassium 4.1 mmol/L (3.5-5.0)
[2020-09-08] MEDS: Lactated Ringers 1000 ml BAG 1,000 ML IV SCH ×2 (07:47→16:34)
[2020-09-08] MEDS: Multivitamins/Minerals TAB PO SCH (08:44)
[2020-09-08] MEDS ORDERED: oxyCODONE/Acetamin 5/325 mg TAB PO PRN (09:38)
[2020-09-08] MEDS: Phytonadione Oral Solution 5 MG/25 ML UDC PO SCH (11:34)
[2020-09-08 19:51] LABS: ABS Eosinophils 0.1 10^3/ul (0-0.6); ABS Lymphocytes 0.7 10^3/ul (1.0-4.8); ABS Monocytes 0.7 10^3/ul (0-0.8); ABS Neutrophils 9.7 10^3/ul (1.5-7.7); Eosinophil % 0.5 %; Hematocrit 40 % (42-52); Hemoglobin 13.1 g/dL (14.0-18.0); Lymphocyte % 6.2 %; Mean Corpuscular HGB Conc 33 g/dL (31-36); Mean Corpuscular Hemoglobin 31 pg (27-31); Mean Corpuscular Volume 93 fL (80-94); Mean Platelet Volume 8.5 fL (7.4-10.4); Platelet Count 218 10^3/uL (150-450); Red Blood Count 4.26 10^6 /uL (4.18-5.48); Red Cell Distribution Width 15 % (10-15); White Blood Count 11.1 10^3/uL (3.5-10.8)
[2020-09-08 20:08] LABS: BUN/Creatinine Ratio 6.7 (8-20); Calcium 7.9 mg/dL (8.6-10.3); EGFR African American 136.3 (>60); EGFR Non-African American 112.6 (>60); Potassium 3.9 mmol/L (3.5-5.0)
[2020-09-08] MEDS: oxyCODONE/Acetamin 5/325 mg TAB PO PRN (23:58)
[2020-09-09] MEDS: Lactated Ringers 1000 ml BAG 1,000 ML IV SCH (00:05)
[2020-09-09] MEDS: oxyCODONE/Acetamin 5/325 mg TAB PO PRN ×2 (06:26→13:21)
[2020-09-09 07:14] LABS: Hematocrit 39 % (42-52); Hemoglobin 12.8 g/dL (14.0-18.0); Mean Corpuscular HGB Conc 33 g/dL (31-36); Mean Corpuscular Hemoglobin 31 pg (27-31); Mean Corpuscular Volume 93 fL (80-94); Platelet Count 215 10^3/uL (150-450); Red Blood Count 4.14 10^6 /uL (4.18-5.48); Red Cell Distribution Width 14 % (10-15); White Blood Count 9.8 10^3/uL (3.5-10.8)
[2020-09-09 07:27] LABS: BUN/Creatinine Ratio 5.4 (8-20); Calcium 8.6 mg/dL (8.6-10.3); EGFR African American 138.4 (>60); EGFR Non-African American 114.4 (>60); Potassium 4.3 mmol/L (3.5-5.0)
[2020-09-09] MEDS: Phytonadione Oral Solution 5 MG/25 ML UDC PO SCH (09:22)
[2020-09-09] MEDS: Multivitamins/Minerals TAB PO SCH (09:22)
[2020-09-10] MEDS: oxyCODONE/Acetamin 5/325 mg TAB PO PRN ×2 (02:12→22:34)
[2020-09-10] MEDS: Phytonadione Oral Solution 5 MG/25 ML UDC PO SCH (08:49)
[2020-09-10] MEDS: Multivitamins/Minerals TAB PO SCH (08:49)
[2020-09-11] MEDS: Multivitamins/Minerals TAB PO SCH (08:41)
[2020-09-11] MEDS: oxyCODONE/Acetamin 5/325 mg TAB PO PRN (22:56)
[2020-09-12 08:21] VITALS: BP 111/71
[2020-09-12] MEDS: Multivitamins/Minerals TAB PO SCH (10:34)
== END 2020-09-12 13:44 | disposition home or self-care (01) | DRG 221 ==
LOC: AA 07:04 → SSU 15:52
PROVIDERS: ADMIT Surgery; ATTEND Surgery

== ENCOUNTER 2020-11-27 06:00 | Inpatient (IN) ==
[~2020-11-27 06:00] MED LIST changes: -Dexamethasone IV 4 MG/ML VIAL 1 ml VIAL IV SLOW PU ONE; -DiMENhydriNATE IV 50 mg/ml 1 ml VIAL IV PUSH ONE; +Ertapenem 1 GM in NS 0.9% 50 ML BAG IVPB SCH
[2020-11-27] MEDS ORDERED: Famotidine IV 10 MG/ML 2 ml VIAL (20 mg) ONE (06:18)
[2020-11-27] MEDS ORDERED: Buffered Lidocaine 1% SYRIN 1 ml INTRADERM ONE (06:18)
[2020-11-27] MEDS ORDERED: Heparin 5000 UNITS/ML 1 mL VIAL ONE (06:18)
[2020-11-27] MEDS ORDERED: Midazolam 2 mg/2 ml VIAL 1 mg/ml 2 ml VIAL (2 mg) ONE ×2 (07:20→07:47)
[2020-11-27] MEDS ORDERED: fentaNYL 100 mcg/2 ml 50 MCG/ML VIAL ONE ×3 (07:20→10:44)
[2020-11-27] MEDS ORDERED: Lidocaine 2% PF 5 ML VIAL ONE (07:21)
[2020-11-27] MEDS ORDERED: Ondansetron 4 mg VIAL 2 MG/ML 2 ml VIAL ONE (07:21)
[2020-11-27] MEDS ORDERED: Rocuronium 50 mg VIAL 10 mg/ml 5 ml VIAL (50 mg) ONE ×2 (07:21→09:16)
[2020-11-27] MEDS ORDERED: Dexamethasone IV 4 MG/ML VIAL 1 ml VIAL ONE (07:21)
[2020-11-27] MEDS ORDERED: Propofol 10 MG/ML 20 ML BTL ONE (07:21)
[2020-11-27] MEDS ORDERED: Acetaminophen IV 1 GM/100ML 100 ML ONE (08:25)
[2020-11-27] MEDS ORDERED: Dexmedetomidine 200 mcg/2 ml 2 ml VIAL (200 mcg) ONE (08:27)
[2020-11-27] MEDS ORDERED: EPHEDrine (Pressors) 50 MG/ML VIAL ONE (09:01)
[2020-11-27] MEDS ORDERED: Ondansetron 4 mg VIAL 2 MG/ML 2 ml VIAL IV PRN ×2 (09:34→11:14)
[2020-11-27] MEDS ORDERED: Naloxone 0.4 mg VIAL 0.4 mg/ml 1 ml VIAL IV PRN (09:34)
[2020-11-27] MEDS ORDERED: DiMENhydriNATE IV 50 mg/ml 1 ml VIAL IV PUSH PRN (09:34)
[2020-11-27] MEDS ORDERED: fentaNYL 100 mcg/2 ml 50 MCG/ML VIAL IV PRN (09:34)
[2020-11-27] MEDS ORDERED: HYDROmorphone 0.5 MG/0.5 ML SYRINGE IV SLOW PU PRN (11:14)
[2020-11-27] MEDS: Lactated Ringers 1000 ml BAG 1,000 ML IV SCH ×2 (12:18→20:51)
[2020-11-27] MEDS: oxyCODONE/Acetamin 5/325 mg TAB PO PRN ×2 (16:56→20:51)
[2020-11-28] MEDS: Lactated Ringers 1000 ml BAG 1,000 ML IV SCH ×2 (04:45→12:58)
[2020-11-28 06:51] LABS: ABS Eosinophils 0.1 10^3/ul (0-0.6); ABS Lymphocytes 0.9 10^3/ul (1.0-4.8); ABS Monocytes 0.6 10^3/ul (0-0.8); ABS Neutrophils 4.8 10^3/ul (1.5-7.7); Eosinophil % 1.3 %; Hematocrit 38 % (42-52); Hemoglobin 12.9 g/dL (14.0-18.0); Lymphocyte % 14.5 %; Mean Corpuscular HGB Conc 34 g/dL (31-36); Mean Corpuscular Hemoglobin 30 pg (27-31); Mean Corpuscular Volume 88 fL (80-94); Mean Platelet Volume 8.3 fL (7.4-10.4); Platelet Count 162 10^3/uL (150-450); Red Blood Count 4.28 10^6 /uL (4.18-5.48); Red Cell Distribution Width 15 % (10-15); White Blood Count 6.4 10^3/uL (3.5-10.8)
[2020-11-28 07:07] LABS: Calcium 8.7 mg/dL (8.6-10.3); EGFR African American 102.5 (>60); EGFR Non-African American 84.7 (>60); Potassium 4.2 mmol/L (3.5-5.0)
[2020-11-28] MEDS: oxyCODONE/Acetamin 5/325 mg TAB PO PRN ×3 (07:50→23:13)
[2020-11-29] MEDS: oxyCODONE/Acetamin 5/325 mg TAB PO PRN ×3 (03:07→22:28)
[2020-11-29 09:48] LABS: Urine Appearance Clear; Urine Bilirubin Negative (Negative); Urine Blood 3+ (Negative); Urine Color Yellow; Urine Glucose Negative (Negative); Urine Ketones 1+ (Negative); Urine Nitrite Negative (Negative); Urine Protein Negative (Negative); Urine Specific Gravity 1.004 (1.002-1.030); Urine Urobilinogen Negative (Negative)
[2020-11-29 11:27] LABS: Urine Bacteria Absent (Absent); Urine Red Blood Cell 1+(3-5/hpf) (Absent); Urine Squamous Epithelial Cell Present (Absent); Urine White Blood Cell 1+(6-10/hpf) (Absent)
[2020-11-30] MEDS: oxyCODONE/Acetamin 5/325 mg TAB PO PRN ×2 (03:06→09:30)
[2020-11-30 11:53] VITALS: BP 119/79
== END 2020-11-30 15:22 | disposition home or self-care (01) | DRG 223 ==
LOC: AA 06:00 → SSU 12:35
PROVIDERS: ADMIT Surgery; ATTEND Surgery

== ENCOUNTER 2021-07-22 18:28 | Inpatient (IN) ==
[2021-07-22] MEDS ORDERED: Lorazepam PYXIS KEY PRN (18:43)
[2021-07-22] MEDS ORDERED: LORazepam 2 mg VIAL 1 ml IV PUSH ONE (18:43)
[2021-07-22] MEDS ORDERED: Thiamine 100 MG/ML 2 ml VIAL (200 mg) IM ONE ×2 (18:44→18:50)
[2021-07-22 20:03] LABS: INR 1.04 (0.86-1.15)
[2021-07-22 20:11] LABS: ALT 152 U/L (7-52); AST 347 U/L (13-39); Albumin 3.7 g/dL (3.2-5.2); Albumin/Globulin Ratio 1.2 (1-3); Alkaline Phosphatase 148 U/L (35-149); Anion Gap 11 mmol/L (2-11); Blood Urea Nitrogen 9 mg/dL (6-24); CO2 Carbon Dioxide 27 mmol/L (22-32); Chloride 92 mmol/L (101-111); Globulin 3.1 g/dL (2-4); Glucose 147 mg/dL (70-100); Potassium 3.1 mmol/L (3.5-5.0); Sodium 130 mmol/L (135-145); Total Protein 6.8 g/dL (6.4-8.9); eGFR CKD-EPI 91.3 (>60)
[2021-07-22 20:13] LABS: Hematocrit 39 % (42-52); Hemoglobin 13.6 g/dL (14.0-18.0); Mean Corpuscular HGB Conc 35 g/dL (31-36); Mean Corpuscular Hemoglobin 33 pg (27-31); Mean Corpuscular Volume 96 fL (80-94); Mean Platelet Volume 9.4 fL (7.4-10.4); Platelet Count 53 10^3/uL (150-450); Red Cell Distribution Width 13 % (10-15); White Blood Count 4.1 10^3/uL (3.5-10.8)
[2021-07-22] MEDS ORDERED: Potassium Chlor 20 meq TAB.ER PO ONE ×2 (20:14→23:07)
[2021-07-22 20:37] LABS: Alcohol, S < 13 mg/dL (<13)
[2021-07-22 20:43] LABS: ABS Lymphocytes 0.2 10^3/ul (1.0-4.8); ABS Monocytes 0.3 10^3/ul (0-0.8); ABS Neutrophils 3.6 10^3/ul (1.5-7.7); Eosinophil % 0.1 %; Lymphocyte % 4.9 %; Nucleated Red Blood Cells % 0.2
[2021-07-22 20:46] LABS: Magnesium 1.9 mg/dL (1.9-2.7)
[2021-07-22] MEDS ORDERED: Ondansetron 4 mg VIAL 2 MG/ML 2 ml VIAL IV PRN (22:47)
[2021-07-22] MEDS ORDERED: Magnesium Sulfate IV 1GM/100ML 1 GM/100 ML BAG IV ONE (23:07)
[2021-07-22] MEDS ORDERED: Benzocaine (DENTAL) 10% TOP.GEL TOPICAL PRN (23:12)
[2021-07-22] MEDS ORDERED: Thiamine 100 MG/ML 2 ml VIAL 100 MG, Folic Acid IV 1 MG, Multiple Vitamin IV ADULT 10 M... IV ONE (23:30)
[2021-07-22 23:34] LABS: Phosphorus 2.1 mg/dL (2.5-5.0)
[2021-07-22 23:49] LABS: TSH Ultra Thyroid Stim Horm 6.23 mcIU/mL (0.34-5.60)
[2021-07-23] MEDS: Potassium & Sodium Phos 250 mg = 1 PACKET PO SCH ×5 (03:27→20:52)
[2021-07-23] MEDS ORDERED: Lorazepam PYXIS KEY PRN ×2 (04:24→23:14)
[2021-07-23] MEDS ORDERED: LORazepam 2 mg VIAL 1 ml IV PUSH ONE ×2 (04:24→23:14)
[2021-07-23] MEDS ORDERED: D5NS 0.9% 1000 ml BAG 1,000 ML IV SCH (05:00)
[2021-07-23 05:38] LABS: Hematocrit 38 % (42-52); Hemoglobin 13.2 g/dL (14.0-18.0); Mean Corpuscular HGB Conc 34 g/dL (31-36); Mean Corpuscular Hemoglobin 34 pg (27-31); Mean Corpuscular Volume 98 fL (80-94); Mean Platelet Volume 9.6 fL (7.4-10.4); Platelet Count 48 10^3/uL (150-450); Red Blood Count 3.92 10^6 /uL (4.18-5.48); Red Cell Distribution Width 13 % (10-15); White Blood Count 3.4 10^3/uL (3.5-10.8)
[2021-07-23 05:52] LABS: Albumin 3.4 g/dL (3.2-5.2); Albumin/Globulin Ratio 1.2 (1-3); Calcium 8.5 mg/dL (8.6-10.3); Globulin 2.8 g/dL (2-4); Potassium 3.6 mmol/L (3.5-5.0); Total Bilirubin 5.9 mg/dL (0.2-1.0); Total Protein 6.2 g/dL (6.4-8.9); eGFR CKD-EPI 90.2 (>60)
[2021-07-23] MEDS: Multivitamins/Minerals TAB PO SCH (08:55)
[2021-07-23] MEDS: LORazepam 2 mg VIAL 1 ml IV PUSH SCH ×6 (08:56→21:46)
[2021-07-23] MEDS ORDERED: Multivitamins/Minerals TAB PO SCH (09:00)
[2021-07-24] MEDS: LORazepam 2 mg VIAL 1 ml IV PUSH SCH ×8 (00:23→20:16)
[2021-07-24] MEDS ORDERED: LORazepam 2 mg VIAL 1 ml IM ONE ×3 (02:40→04:54)
[2021-07-24] MEDS ORDERED: Lorazepam PYXIS KEY PRN ×6 (02:40→21:43)
[2021-07-24 06:41] LABS: ABS Lymphocytes 0.5 10^3/ul (1.0-4.8); ABS Monocytes 0.5 10^3/ul (0-0.8); ABS Neutrophils 3.8 10^3/ul (1.5-7.7); Eosinophil % 0.2 %; Hematocrit 40 % (42-52); Hemoglobin 13.6 g/dL (14.0-18.0); Mean Corpuscular HGB Conc 34 g/dL (31-36); Mean Corpuscular Hemoglobin 34 pg (27-31); Mean Corpuscular Volume 98 fL (80-94); Mean Platelet Volume 10.1 fL (7.4-10.4); Nucleated Red Blood Cells % 0.1; Platelet Count 55 10^3/uL (150-450); Red Blood Count 4.06 10^6 /uL (4.18-5.48); Red Cell Distribution Width 13 % (10-15); White Blood Count 4.8 10^3/uL (3.5-10.8)
[2021-07-24] MEDS ORDERED: LORazepam 2 mg VIAL 1 ml IV PUSH ONE ×3 (06:46→21:44)
[2021-07-24 06:56] LABS: Albumin 3.7 g/dL (3.2-5.2); Albumin/Globulin Ratio 1.2 (1-3); Calcium 9.1 mg/dL (8.6-10.3); Globulin 3.1 g/dL (2-4); Magnesium 1.7 mg/dL (1.9-2.7); Potassium 3.6 mmol/L (3.5-5.0); Total Bilirubin 6.7 mg/dL (0.2-1.0); Total Protein 6.8 g/dL (6.4-8.9); eGFR CKD-EPI 103.2 (>60)
[2021-07-24] MEDS ORDERED: Magnesium Sulfate IV 3 GM in NS 0.9% 100 ml BAG 100 ML IVPB ONE (07:00)
[2021-07-24] MEDS: Potassium & Sodium Phos 250 mg = 1 PACKET PO SCH ×4 (08:11→22:14)
[2021-07-24] MEDS: Multivitamins/Minerals TAB PO SCH (09:56)
[2021-07-24 11:10] LABS: Hepatitis B Surface Antigen Nonreactive (Nonreactive)
[2021-07-24 11:15] LABS: Hepatitis A Ab IgM Negative (Negative); Hepatitis B Core IgM Nonreactive (Nonreactive)
[2021-07-24 11:27] LABS: Hepatitis C Antibody Negative (Negative)
[2021-07-25] MEDS: LORazepam 2 mg VIAL 1 ml IV PUSH SCH ×2 (01:15→03:25)
[2021-07-25 08:36] LABS: ABS Lymphocytes 0.8 10^3/ul (1.0-4.8); ABS Monocytes 0.8 10^3/ul (0-0.8); ABS Neutrophils 4.1 10^3/ul (1.5-7.7); Eosinophil % 0.7 %; Hematocrit 40 % (42-52); Hemoglobin 13.8 g/dL (14.0-18.0); Lymphocyte % 14.6 %; Mean Corpuscular HGB Conc 34 g/dL (31-36); Mean Corpuscular Hemoglobin 34 pg (27-31); Mean Corpuscular Volume 98 fL (80-94); Nucleated Red Blood Cells % 0.1; Platelet Count 68 10^3/uL (150-450); Red Cell Distribution Width 13 % (10-15); White Blood Count 5.8 10^3/uL (3.5-10.8)
[2021-07-25 08:47] LABS: Albumin 3.8 g/dL (3.2-5.2); Albumin/Globulin Ratio 1.3 (1-3); Calcium 9.1 mg/dL (8.6-10.3); Globulin 2.9 g/dL (2-4); Magnesium 1.8 mg/dL (1.9-2.7); Potassium 3.3 mmol/L (3.5-5.0); Total Bilirubin 4.5 mg/dL (0.2-1.0); Total Protein 6.7 g/dL (6.4-8.9); eGFR CKD-EPI 90.2 (>60)
[2021-07-25] MEDS: Potassium & Sodium Phos 250 mg = 1 PACKET PO SCH ×4 (09:58→20:09)
[2021-07-25] MEDS: Multivitamins/Minerals TAB PO SCH (09:58)
[2021-07-25] MEDS: NS 0.9% 1000 ml BAG 1,000 ML IV SCH ×2 (11:24→19:49)
[2021-07-25] MEDS ORDERED: KCL 20 MEQ/100 ML IVPREMIX 20 MEQ/100 ML BAG IV SCH (13:00)
[2021-07-25] MEDS: KCL premix 10 MEQ/50 ML x 2 BAGS IV SCH ×2 (13:26→18:15)
[2021-07-26] MEDS: NS 0.9% 1000 ml BAG 1,000 ML IV SCH (03:54)
[2021-07-26 06:04] LABS: ABS Eosinophils 0.1 10^3/ul (0-0.6); ABS Lymphocytes 0.7 10^3/ul (1.0-4.8); ABS Monocytes 0.5 10^3/ul (0-0.8); ABS Neutrophils 1.9 10^3/ul (1.5-7.7); Eosinophil % 2.1 %; Hematocrit 34 % (42-52); Hemoglobin 11.8 g/dL (14.0-18.0); Lymphocyte % 20.5 %; Mean Corpuscular HGB Conc 34 g/dL (31-36); Mean Corpuscular Hemoglobin 34 pg (27-31); Mean Corpuscular Volume 98 fL (80-94); Mean Platelet Volume 9.8 fL (7.4-10.4); Platelet Count 72 10^3/uL (150-450); Red Blood Count 3.52 10^6 /uL (4.18-5.48); Red Cell Distribution Width 13 % (10-15); White Blood Count 3.2 10^3/uL (3.5-10.8)
[2021-07-26 06:08] LABS: Albumin/Globulin Ratio 1.2 (1-3); Calcium 8.1 mg/dL (8.6-10.3); Globulin 2.6 g/dL (2-4); Magnesium 1.6 mg/dL (1.9-2.7); Potassium 3.2 mmol/L (3.5-5.0); Total Bilirubin 2.7 mg/dL (0.2-1.0); Total Protein 5.6 g/dL (6.4-8.9); eGFR CKD-EPI 112.5 (>60)
[2021-07-26] MEDS ORDERED: Potassium Chloride LIQUID 20 MEQ/15 ML LIQUID PO ONE (06:45)
[2021-07-26] MEDS ORDERED: Magnesium Sulfate IV 3 GM in NS 0.9% 100 ml BAG 100 ML IVPB ONE (06:46)
[2021-07-26] MEDS: Multivitamins/Minerals TAB PO SCH (09:42)
[2021-07-27 06:38] LABS: Albumin 2.9 g/dL (3.2-5.2); Calcium 8.1 mg/dL (8.6-10.3); Globulin 2.4 g/dL (2-4); Magnesium 1.8 mg/dL (1.9-2.7); Potassium 3.3 mmol/L (3.5-5.0); Total Protein 5.3 g/dL (6.4-8.9)
[2021-07-27 06:39] LABS: Albumin/Globulin Ratio 1.2 (1-3); Total Bilirubin 1.5 mg/dL (0.2-1.0)
[2021-07-27 06:49] LABS: ABS Lymphocytes 0.8 10^3/ul (1.0-4.8); ABS Monocytes 0.6 10^3/ul (0-0.8); ABS Neutrophils 1.6 10^3/ul (1.5-7.7); Eosinophil % 1.5 %; Hematocrit 34 % (42-52); Hemoglobin 11.4 g/dL (14.0-18.0); Lymphocyte % 25.6 %; Mean Corpuscular HGB Conc 34 g/dL (31-36); Mean Corpuscular Hemoglobin 34 pg (27-31); Mean Corpuscular Volume 100 fL (80-94); Mean Platelet Volume 9.1 fL (7.4-10.4); Nucleated Red Blood Cells % 0.1; Platelet Count 87 10^3/uL (150-450); Red Blood Count 3.38 10^6 /uL (4.18-5.48); Red Cell Distribution Width 13 % (10-15)
[2021-07-27] MEDS: Multivitamins/Minerals TAB PO SCH (08:27)
[2021-07-27] MEDS ORDERED: Magnesium Sulfate IV 3 GM in NS 0.9% 100 ml BAG 100 ML IVPB ONE (16:11)
[2021-07-27] MEDS ORDERED: Potassium Chloride LIQUID 20 MEQ/15 ML LIQUID PO ONE (16:11)
[2021-07-28 06:49] LABS: ABS Eosinophils 0.1 10^3/ul (0-0.6); ABS Lymphocytes 0.9 10^3/ul (1.0-4.8); ABS Monocytes 0.6 10^3/ul (0-0.8); ABS Neutrophils 1.5 10^3/ul (1.5-7.7); Eosinophil % 1.8 %; Hematocrit 34 % (42-52); Hemoglobin 11.2 g/dL (14.0-18.0); Lymphocyte % 28.8 %; Mean Corpuscular HGB Conc 33 g/dL (31-36); Mean Corpuscular Hemoglobin 33 pg (27-31); Mean Corpuscular Volume 100 fL (80-94); Mean Platelet Volume 9.3 fL (7.4-10.4); Nucleated Red Blood Cells % 0.1; Platelet Count 100 10^3/uL (150-450); Red Blood Count 3.39 10^6 /uL (4.18-5.48); Red Cell Distribution Width 14 % (10-15)
[2021-07-28 07:10] LABS: Albumin/Globulin Ratio 1.2 (1-3); Calcium 8.3 mg/dL (8.6-10.3); Globulin 2.5 g/dL (2-4); Magnesium 1.9 mg/dL (1.9-2.7); Potassium 3.6 mmol/L (3.5-5.0); Total Bilirubin 1.2 mg/dL (0.2-1.0); Total Protein 5.5 g/dL (6.4-8.9); eGFR CKD-EPI 108.4 (>60)
[2021-07-28] MEDS: Multivitamins/Minerals TAB PO SCH (08:39)
[2021-07-28] MEDS: Heparin 5000 UNITS/ML 1 mL VIAL SUBCUT SCH ×2 (16:24→20:21)
[2021-07-28 17:25] LABS: Hematocrit 35 % (42-52); Hemoglobin 11.7 g/dL (14.0-18.0); Mean Corpuscular HGB Conc 33 g/dL (31-36); Mean Corpuscular Hemoglobin 34 pg (27-31); Mean Corpuscular Volume 101 fL (80-94); Mean Platelet Volume 9.6 fL (7.4-10.4); Platelet Count 124 10^3/uL (150-450); Red Blood Count 3.48 10^6 /uL (4.18-5.48); Red Cell Distribution Width 14 % (10-15); White Blood Count 2.7 10^3/uL (3.5-10.8)
[2021-07-28 17:33] LABS: Activated Partial Thrombo Time 30.7 seconds (26.0-38.0); INR 1.01 (0.86-1.15)
[2021-07-28 17:38] LABS: eGFR CKD-EPI 108.4 (>60)
[2021-07-28 17:42] LABS: ABS Lymphocytes 0.6 10^3/ul (1.0-4.8); ABS Monocytes 0.5 10^3/ul (0-0.8); ABS Neutrophils 1.6 10^3/ul (1.5-7.7); Eosinophil % 1.6 %; Nucleated Red Blood Cells % 0.2
[2021-07-29] MEDS: Heparin 5000 UNITS/ML 1 mL VIAL SUBCUT SCH (08:23)
[2021-07-29] MEDS: Multivitamins/Minerals TAB PO SCH (08:23)
[2021-07-29 13:58] VITALS: BP 132/78
== END 2021-07-29 14:50 | disposition home or self-care (01) | DRG 775 ==
LOC: EDHOLD 18:28 → ED 18:28 → SUATTDRO 22:47 → MEDTELE 07-23 02:28 → SUATTDRO 07-23 12:38
PROVIDERS: ADMIT Internal Medicine; ATTEND Internal Medicine

== ENCOUNTER 2024-04-14 06:28 | Inpatient (IN) ==
[2024-04-14 07:45] LABS: INR 2.25 (0.85-1.14)
[2024-04-14 08:00] LABS: Urine Appearance Extra Turbid; Urine Bilirubin 1+ (Negative); Urine Blood Trace (Negative); Urine Glucose Negative (Negative); Urine Ketones Negative (Negative); Urine Nitrite Negative (Negative); Urine Protein 1+ (>=30 mg/dL) (Negative); Urine Specific Gravity 1.024 (1.002-1.030); Urine Urobilinogen 2+ (Negative); Urine pH 5.5 (5.0-8.0)
[2024-04-14 08:27] LABS: Urine Amorphous Crystals Present /HPF (Absent); Urine Bacteria Absent /HPF (Absent); Urine Red Blood Cell Trace(0-2/hpf) /HPF (0-Trace); Urine Squamous Epithelial Cell Present /HPF (Absent); Urine White Blood Cell 2+(11-20/hpf) /HPF (0-Trace)
[2024-04-14 08:28] LABS: Urine Color Dark-Orange
[2024-04-14 08:28] LABS: ABS Basophils 0.1 10^3/uL (0.0-0.1); ABS Eosinophils 0.1 10^3/uL (0.0-0.5); ABS Lymphocytes 1.5 10^3/uL (1.0-4.8); ABS Monocytes 0.7 10^3/uL (0.0-1.1); ABS Neutrophils 6.2 10^3/uL (1.5-7.6); ABS Nucleated RBC 0.01 10^3/ul; Anisocytosis 1+; Eosinophil % 1.7 %; Hematocrit 37.1 % (38-53); Hemoglobin 12.4 g/dL (13.2-16.3); Lymphocyte % 17.2 %; Macrocytosis 2+; Mean Corpuscular Hemoglobin 35.2 pg (27-33); Mean Corpuscular Hgb Conc 33.3 g/dL (31-36); Mean Corpuscular Volume 105.5 fL (80-97); Mean Platelet Volume 9.6 fL (7.5-11.2); Nucleated Red Blood Cells % 0.1 %/100WBC (0.0-0.8); Platelet Count 293 10^3/uL (150-450); Red Blood Count 3.52 10^6/uL (4.06-5.63); White Blood Count 8.6 10^3/uL (3.6-10.2)
[2024-04-14 08:43] LABS: ALT 66 U/L (7-52); AST 292 U/L (13-39); Albumin 2.5 g/dL (3.2-5.2); Albumin/Globulin Ratio 0.6 (1-3); Alkaline Phosphatase 131 U/L (35-149); Anion Gap 11 mmol/L (2-16); Blood Urea Nitrogen 16 mg/dL (6-24); C Reactive Protein 79.93 mg/L (<8.01); CO2 Carbon Dioxide 21 mmol/L (22-32); Calcium 8.2 mg/dL (8.6-10.3); Chloride 101 mmol/L (101-111); Globulin 4.2 g/dL (2-4); Glucose 124 mg/dL (70-100); Lipase 103 U/L (11.0-82.0); Magnesium 1.6 mg/dL (1.9-2.7); Potassium 4.5 mmol/L (3.5-5.0); Sodium 133 mmol/L (135-145); Total Bilirubin 5.9 mg/dL (0.2-1.0); Total Protein 6.7 g/dL (6.4-8.9)
[2024-04-14 11:42] LABS: Alcohol, S < 13 mg/dL (<13)
[2024-04-14 14:58] LABS: Urine Benzodiazepine Screen None Detected (None Detect); Urine Cannabinoids Screen None Detected (None Detect); Urine Opiates Screen None Detected (None Detect)
[2024-04-14] MEDS ORDERED: Senna TAB 8.6 mg TAB PO PRN (15:07)
[2024-04-14 16:24] LABS: Direct Bilirubin 2.7 mg/dL (0.03-0.18); Indirect Bilirubin 3.2 mg/dL (0.3-1.0)
[2024-04-14] MEDS: Lactated Ringers 1000 ml BAG 1,000 ML IV SCH (17:21)
[2024-04-14] MEDS: Enoxaparin 40 MG/0.4 ML SYR SUBCUT SCH (17:23)
[2024-04-14 17:38] LABS: Body Fluid Total Nucleated 23 /mcL
[2024-04-14 18:27] LABS: Hepatitis B Surface Antigen Nonreactive (Nonreactive)
[2024-04-14 18:32] LABS: Hepatitis A Ab IgM Negative (Negative)
[2024-04-14 18:33] LABS: Hepatitis B Core IgM Nonreactive (Nonreactive)
[2024-04-14 18:45] LABS: Hepatitis C Antibody Negative (Negative)
[2024-04-14 19:16] LABS: Body Fluid Mono 77 %; Body Fluid NRBC 1; Body Fluid Other Cells 14; Body Fluid Total Cells Counted 200
[2024-04-14 19:17] LABS: Body Fluid Appearance Cloudy; Body Fluid Color Amber; Body Fluid Source Peritonial Fluid
[2024-04-15 06:38] LABS: ABS Basophils 0.1 10^3/uL (0.0-0.1); ABS Eosinophils 0.1 10^3/uL (0.0-0.5); ABS Lymphocytes 1.6 10^3/uL (1.0-4.8); ABS Monocytes 0.8 10^3/uL (0.0-1.1); ABS Neutrophils 4.6 10^3/uL (1.5-7.6); ABS Nucleated RBC 0.01 10^3/ul; Eosinophil % 1.9 %; Hematocrit 30.4 % (38-53); Hemoglobin 10.3 g/dL (13.2-16.3); Lymphocyte % 22.6 %; Mean Corpuscular Hemoglobin 35.1 pg (27-33); Mean Corpuscular Hgb Conc 33.7 g/dL (31-36); Mean Corpuscular Volume 104.1 fL (80-97); Mean Platelet Volume 9.2 fL (7.5-11.2); Nucleated Red Blood Cells % 0.1 %/100WBC (0.0-0.8); Platelet Count 181 10^3/uL (150-450); Red Blood Count 2.92 10^6/uL (4.06-5.63); Red Cell Distribution Width 16.1 % (12-17); White Blood Count 7.3 10^3/uL (3.6-10.2)
[2024-04-15 07:25] LABS: Albumin 1.9 g/dL (3.2-5.2); Albumin/Globulin Ratio 0.6 (1-3); Calcium 7.3 mg/dL (8.6-10.3); Creatinine, Serum 1.18 mg/dL (0.67-1.17); Globulin 3.3 g/dL (2-4); Magnesium 1.5 mg/dL (1.9-2.7); Phosphorus 3.3 mg/dL (2.5-5.0); Potassium 3.6 mmol/L (3.5-5.0); Total Bilirubin 4.5 mg/dL (0.2-1.0); Total Protein 5.2 g/dL (6.4-8.9); eGFR CKD-EPI 76.1 (>60)
[2024-04-15] MEDS: Multivitamins/Minerals TAB PO SCH (09:19)
[2024-04-15] MEDS: Magnesium Sulfate 2 gm BAG 2 GM/50 ML BAG IVPB ONE (11:05)
[2024-04-15] MEDS: Iohexol 300 (CONTRAST) 10 ML SDV IV ONE (12:46)
[2024-04-15] MEDS: Mupirocin 2% OINT TUBE TOPICAL SCH (22:00)
[2024-04-16 08:06] LABS: ABS Lymphocytes 0.8 10^3/uL (1.0-4.8); ABS Monocytes 0.6 10^3/uL (0.0-1.1); ABS Neutrophils 7.5 10^3/uL (1.5-7.6); ABS Nucleated RBC 0.02 10^3/ul; Hematocrit 30.4 % (38-53); Hemoglobin 10.3 g/dL (13.2-16.3); Lymphocyte % 8.8 %; Mean Corpuscular Hemoglobin 35.5 pg (27-33); Mean Corpuscular Volume 104.3 fL (80-97); Mean Platelet Volume 9.4 fL (7.5-11.2); Nucleated Red Blood Cells % 0.3 %/100WBC (0.0-0.8); Platelet Count 176 10^3/uL (150-450); Red Blood Count 2.91 10^6/uL (4.06-5.63); Red Cell Distribution Width 15.9 % (12-17); White Blood Count 8.9 10^3/uL (3.6-10.2)
[2024-04-16] MEDS: Polyethylene Glycol 3350 17 GM PACKET PO PRN (08:08)
[2024-04-16 08:30] LABS: Albumin 2.1 g/dL (3.2-5.2); Albumin/Globulin Ratio 0.6 (1-3); Calcium 7.5 mg/dL (8.6-10.3); Creatinine, Serum 0.99 mg/dL (0.67-1.17); Globulin 3.6 g/dL (2-4); Magnesium 1.7 mg/dL (1.9-2.7); Total Bilirubin 4.6 mg/dL (0.2-1.0); Total Protein 5.7 g/dL (6.4-8.9)
[2024-04-16] MEDS: Magnesium Sulfate 2 gm BAG 2 GM/50 ML BAG IVPB ONE (11:46)
[2024-04-16 11:51] LABS: Cytomegalovirus IgG Antibody Negative (Negative)
[2024-04-16] MEDS: Lactulose 30 ml UDC PO SCH (14:21)
[2024-04-16 14:59] LABS: Albumin, BF 0.7 g/dL; Fluid Type, Albumin PERITONEAL FLUID; Fluid Type, Protein, Total PERITONEAL FLUID; Total Protein, BF 1.2 g/dL
[2024-04-17 06:37] LABS: ABS Basophils 0.1 10^3/uL (0.0-0.1); ABS Lymphocytes 0.8 10^3/uL (1.0-4.8); ABS Monocytes 0.7 10^3/uL (0.0-1.1); ABS Neutrophils 6.5 10^3/uL (1.5-7.6); ABS Nucleated RBC 0.01 10^3/ul; Eosinophil % 0.1 %; Hematocrit 28.7 % (38-53); Hemoglobin 9.9 g/dL (13.2-16.3); Lymphocyte % 10.1 %; Mean Corpuscular Hemoglobin 35.6 pg (27-33); Mean Corpuscular Hgb Conc 34.3 g/dL (31-36); Mean Corpuscular Volume 103.5 fL (80-97); Mean Platelet Volume 9.3 fL (7.5-11.2); Nucleated Red Blood Cells % 0.1 %/100WBC (0.0-0.8); Platelet Count 147 10^3/uL (150-450); Red Blood Count 2.78 10^6/uL (4.06-5.63); Red Cell Distribution Width 15.4 % (12-17); White Blood Count 8.1 10^3/uL (3.6-10.2)
[2024-04-17 06:47] LABS: INR 2.21 (0.85-1.14)
[2024-04-17 07:42] LABS: Albumin 2.1 g/dL (3.2-5.2); Albumin/Globulin Ratio 0.6 (1-3); Calcium 7.6 mg/dL (8.6-10.3); Creatinine, Serum 0.97 mg/dL (0.67-1.17); Globulin 3.3 g/dL (2-4); Magnesium 1.8 mg/dL (1.9-2.7); Potassium 3.8 mmol/L (3.5-5.0); Total Bilirubin 4.4 mg/dL (0.2-1.0); Total Protein 5.4 g/dL (6.4-8.9); eGFR CKD-EPI 96.3 (>60)
[2024-04-17 08:25] LABS: Lactate Dehydrogenase, BF 69 U/L
[2024-04-17 10:26] LABS: Ceruloplasmin 32.9 mg/dL
[2024-04-17 14:31] VITALS: BP 101/66
[2024-04-17] MEDS: Magnesium Sulfate 2 gm BAG 2 GM/50 ML BAG IVPB ONE (15:20)
== END 2024-04-17 16:30 | disposition home or self-care (01) | DRG 432 ==
LOC: ED 06:28 → EDHOLD 06:28 → SUATTDRO 15:08 → MEDTELE 17:10 → SUATTDRO 04-15 09:34
PROVIDERS: ADMIT Internal Medicine; ATTEND Internal Medicine